=== PATIENT | female | born 1955 | race Caucasian/White ===

== ENCOUNTER 2017-07-29 15:05 | Emergency (ER) | payer MEDICARE ==
--- NOTE | 2017-07-29 16:07 | ERPHSYRPT ---
- History of Present Illness Time Seen by Provider: 07/29/17 16:04 Source: patient Exam Limitations: no limitations Physician History: fell today and hurt her upper mid back, painful deep breathing Timing/Duration: today Method of Injury: fall Quality: aching Back Pain Location: T-spine Severity of Pain-Max: moderate Severity of Pain-Current: moderate Modifying Factors: Improves With: nothing Associated Symptoms: denies symptoms Previous symptoms: no prior history Body Map: 1 - area of pain Allergies/Adverse Reactions: Penicillins Allergy (Verified 07/29/17 16:09) - Review of Systems Constitutional: No Symptoms Eyes: No Symptoms Ears, Nose, & Throat: No Symptoms Respiratory: No Symptoms Cardiac: No Symptoms Abdominal/Gastrointestinal: No Symptoms Musculoskeletal: Back Pain, Fall - Nursing Vital Signs Nursing Vital Signs: Initial Vital Signs Temperature 97.9 F 07/29/17 15:32 Pulse Rate 68 07/29/17 15:32 Respiratory Rate 20 07/29/17 15:32 Blood Pressure 197/88 07/29/17 15:32 O2 Sat by Pulse Oximetry 93 L 07/29/17 15:32 Pain Scale Pain Intensity 10 - Physical Exam General Appearance: no apparent distress, alert Eye Exam: PERRL/EOMI, eyes nml inspection Neck Exam: normal inspection, non-tender, supple, full range of motion, No meningismus, No midline tenderness Respiratory Exam: normal breath sounds, lungs clear, No respiratory distress Cardiovascular Exam: regular rate/rhythm, normal heart sounds Gastrointestinal Exam: soft, No tenderness, No mass Back Exam: normal inspection, decreased range of motion, muscle spasm, No vertebral tenderness, No rash, No point tenderness Extremity Exam: normal inspection, normal range of motion, No calf tenderness, No pedal edema Neurologic Exam: alert, oriented x 3, cooperative, progress developer II-XII nml as tested, normal mood/affect, nml station & gait, sensation nml, No motor deficits Skin Exam: normal color, warm, dry, No rash SpO2: 93 Oxygen Delivery: Room Air - Radiology Exams Other X-ray Interpretation: Reviewed by me Ordered Tests: Active Orders 24 hr Category Date Time Status CHEST 2 VIEWS (PA AND LAT) Stat Exams 07/29/17 15:39 Taken THORACIC SPINE (AP,LAT,SWIMM) Stat Exams 07/29/17 15:39 Taken - Progress Progress: improved, pain not gone completely Counseled pt/family regarding: diagnosis, need for follow-up, rad results - Departure Time of Disposition: 16:11 Departure Disposition: Home Clinical Impression: Fall (on) (from) other stairs and steps, initial encounter Back contusion Qualifiers: Encounter type: initial encounter Laterality: unspecified laterality Qualified Code(s): S20.229A - Contusion of unspecified back wall of thorax, initial encounter Condition: Stable Critical Care Time: No Referrals: TUAN HELTON MD [Emergency Provider] - Additional Instructions: SPRAINS/STRAINS/CONTUSIONS 1. Rest the affected area as much as possible for the next few days. 2. Apply ice to the affected area for 20-30 minutes at a time, several times a day. 3. If you receive an elastic wrap, wear it only while awake for comfort and support. Re-wrap the elastic wrap if it feels too tight or too loose. 4. If swelling is present, elevate the affected part above the level of the heart for at least 2 to 3 days. 5. Use splints, slings, or crutches as instructed. 6. Watch for severe swelling, coldness, numbness, and discoloration of the fingers and toes. See your family physician or return to the emergency department if any of these are noted. Prescriptions: Cyclobenzaprine HCl 10 mg [Flexeril 10 MG] 10 mg PO TID #30 tablet Naproxen 375 mg [Naprosyn 375 mg] 375 mg PO Q8H #30 tablet
[2017-07-29] MEDS ORDERED: TORAdol 30 mg Injection IM ONE (16:10)
[2017-07-29] MEDS ORDERED: Norflex 60 MG/2 ML IM ONE (16:10)
[2017-07-29] MEDS ORDERED: Norflex 60 MG/2 ML ONE (16:19)
[2017-07-29] MEDS ORDERED: TORAdol 30 mg Injection ONE (16:19)
[2017-07-29 16:29] VITALS: PULSE 64
[2017-07-29 16:52] VITALS: BP 185/92; O2SAT 94
--- NOTE | 2017-07-29 20:04 | XRAY ---
Indication: Pain with breathing following fall. Comparison: December 05, 2008. PA/lateral chest again hyperinflated and clear. Heart and mediastinal structures within normal limits with new right-sided dual lead pacemaker. Bony thorax intact again with osteopenia. Impression: Again nonacute hyperinflated chest. New right sided pacemaker without complications.
--- NOTE | 2017-07-29 20:06 | XRAY ---
Indication: Mid/upper back pain following fall. Comparison: None. Frontal/lateral thoracic spine demonstrates osteopenia, minimal multilevel degenerative changes, and mild dextroscoliosis centered mid lumbar level. No other bony, articular, or soft tissue abnormalities. Chest reported separately.
== END 2017-07-29 16:57 | disposition home or self-care (01) ==
LOC: ED 15:05
DX: S20.229A Contusion of unspecified back wall of thorax, initial encounter (principal); M54.6 Pain in thoracic spine; W10.9XXA Fall (on) (from) unspecified stairs and steps, initial encounter
CPT/HCPCS: 71020; 72072; 96372; 99284; J1885; J2360

== ENCOUNTER 2023-10-18 19:12 | Observation (INO) | payer MEDICARE ==
--- NOTE | 2023-10-18 19:54 | ERPHSYRPT ---
- History of Present Illness Time Seen by Provider: 10/18/23 19:14 Source: patient, family Exam Limitations: no limitations Patient Subjective Stated Complaint: pt alert and oriented, answers questions approp. speech slurred- pts normal after stroke. pt states she is short of breath but no more than her usual for the last year. pt c/o pain in james area and states she has been having trouble walking recently d/t pain from sores. Triage Nursing Assessment: pt alert and oriented, answers questions approp with slurred speech. pt short of brath with exertion, states is her normal. skin warm and dry. pt incont upon arrival, urine strong smeling and foul. james area red and excoriated with skin sloughing. Physician History: 67 years old female with history of stroke with unilateral weakness and contractures on Coumadin, COPD, tobacco abuse is brought in the ER with worsening generalized weakness fatigue and tiredness. Patient is having difficult time to get up and ambulate and has been urinating/sitting in the wet bed and has soreness in the perineum area which makes it really difficult to ambulate. Reports having shortness of breath at her baseline which is not any worse than usual. No chest pain, no abdominal pain nausea or vomiting. Denies any fever or chills. Daughter is really concerned as patient does not seem to be able to take care of herself. Allergies/Adverse Reactions: Penicillins Allergy (Unknown, Verified 10/18/23 22:49) Home Medications: Celecoxib 100 mg [celeBREX 100 MG] 100 mg PO DAILY 07/29/17 [History] Metoprolol Tartrate 25 mg [Lopressor 25MG Tab] 25 mg PO DAILY 07/29/17 [History] Pantoprazole Sodium [[id number]] 20 mg PO DAILY 07/29/17 [History] Ergocalciferol (Vitamin D2) [Vitamin D] 50,000 unit PO WEEKLY 02/24/21 [History] Lovastatin 10 mg PO DAILY 02/24/21 [History] Potassium Chloride [Klor-Con 10] 10 meq PO DAILY 02/24/21 [History] Hx Tetanus, Diphtheria Vaccination/Date Given: No Hx Influenza Vaccination/Date Given: No Hx Pneumococcal Vaccination/Date Given: Yes Immunizations Up to Date: No Travel Risk - International Travel Have you traveled outside of the country in past 3 weeks: No - Coronavirus Screening Are you exhibiting any of the following symptoms?: No Close contact with a COVID-19 positive Pt in past 14-21 Days: No - Vaccine Status Have you recieved a Covid-19 vaccination: No - Review of Systems Constitutional: Fatigue, Weakness Eyes: No Symptoms Ears, Nose, & Throat: No Symptoms Respiratory: Cough, Dyspnea, Dyspnea on Exertion (BYNUM), Wheezing Cardiac: No Symptoms Abdominal/Gastrointestinal: No Symptoms Genitourinary Symptoms: Incontinence Musculoskeletal: Arthralgias Skin: No Symptoms Neurological: Speech Changes (Chronic since stroke) Psychological: No Symptoms Immunological/Allergic: No Symptoms - Past Medical History Pertinent Past Medical History: Yes Neurological History: Stroke Cardiac History: Arrhythmia, High Cholesterol, Hypertension Musculoskeletal History: Arthritis GI Medical History: GERD Other Medical History: pacemaker - Past Surgical History Past Surgical History: Yes Cardiac: Pacemaker - Social History Smoking Status: Current every day smoker How long have you smoked: many years Exposure to second hand smoke: No Drug Use: none Patient Lives Alone: Yes - Nursing Vital Signs Nursing Vital Signs: Initial Vital Signs Temperature 97.8 F 10/18/23 19:28 Pulse Rate 75 10/18/23 19:28 Respiratory Rate 20 10/18/23 19:28 Blood Pressure 204/116 10/18/23 19:28 O2 Sat by Pulse Oximetry 96 10/18/23 19:28 Pain Scale Pain Intensity 10 - Physical Exam General Appearance: no apparent distress, alert Eye Exam: PERRL/EOMI Ears, Nose, Throat Exam: normal ENT inspection, TMs normal, pharynx normal Neck Exam: normal inspection, non-tender, supple, full range of motion Respiratory Exam: diminished breath sounds, wheezing, No chest tenderness Cardiovascular Exam: regular rate/rhythm, normal heart sounds Gastrointestinal/Abdomen Exam: soft, normal bowel sounds, No tenderness Back Exam: normal inspection, normal range of motion Extremity Exam: deformities (Contractures) Neurologic Exam: alert, oriented x 3, cooperative, motor deficits, No nml station & gait, No sensation nml Skin Exam: normal color SpO2 Interpretation: normal SpO2: 96 O2 Delivery: Room Air Ordered Tests: Medication Summary Generic Name Dose Route Start Last Admin Trade Name Freq PRN Reason Stop Dose Admin Albuterol Sulfate 2 puff 10/19/23 19:00 Albuterol Common Canister Inhaler IH 11/18/23 18:59 Q4H PRN PRN WHEEZES Albuterol/Ipratropium 3 ml 10/19/23 05:14 Ipratropium/Albuterol Sulfate 3 Ml Ampul.Neb 11/18/23 05:13 Q4HPRN PRN SHORTNESS OF BREATH/WHEEZING Celecoxib 100 mg 10/19/23 10:00 10/20/23 10:00 Celecoxib 100 Mg Capsule PO 11/18/23 09:59 100 mg DAILY JANAE Administration Ergocalciferol 50,000 unit 10/20/23 10:00 Ergocalciferol (Vitamin D2) 50,000 Unit Capsule PO 11/19/23 09:59 WEEKLY JANAE Ceftriaxone Sodium/Dextrose 1 g in 50 mls @ 100 mls/hr 10/19/23 10:00 10/20/23 10:00 Rocephin 1 Gm-D5w 50 Ml Bag IV 10/22/23 09:59 100 mls/hr Q24H10 JANAE Administration Metoprolol Tartrate 25 mg 10/19/23 10:00 10/20/23 10:02 Metoprolol Tartrate 25 Mg Tab PO 11/18/23 09:59 25 mg DAILY JANAE Administration Morphine Sulfate 2 mg 10/19/23 05:48 Morphine Sulfate 2 Mg/Ml Inj IV 10/24/23 05:47 Q4H PRN PRN PAIN Ondansetron HCl 4 mg 10/19/23 17:19 10/19/23 17:56 Ondansetron Hcl 4 Mg/2 Ml Vial IV 11/18/23 17:18 4 mg Q6H PRN PRN Administration NAUSEA/VOMITING Pantoprazole Sodium 20 mg 10/19/23 14:00 10/20/23 10:02 Pantoprazole 20 Mg Tab PO 11/18/23 13:59 20 mg DAILY JANAE Administration Simvastatin 5 mg 10/19/23 14:00 10/20/23 10:00 Simvastatin 10 Mg Tablet PO 11/18/23 13:59 5 mg DAILY JANAE Administration Sodium Bicarbonate 650 mg 10/19/23 10:00 10/20/23 10:02 Sodium Bicarbonate 650 Mg Tablet PO 11/18/23 09:59 650 mg BID JANAE Administration Warfarin Sodium 3 mg 10/19/23 18:00 10/20/23 17:09 Warfarin Sodium 3 Mg Tablet PO 11/18/23 17:59 3 mg COU JANAE Administration Discontinued Medications Generic Name Dose Route Start Last Admin Trade Name Freq PRN Reason Stop Dose Admin Device 1 10/21/23 17:30 Therapuetic Drug Level Monitor Each IJ 10/21/23 17:31 1XONLY ONE Enoxaparin Sodium 40 mg 10/19/23 10:00 Enoxaparin Sodium 40 Mg/0.4 Ml Syringe SQ 11/18/23 09:59 DAILY JANAE Sodium Chloride 1,000 mls @ 100 mls/hr 10/18/23 21:00 10/20/23 10:00 Sodium Chloride 0.9% 1000 Ml IV 11/17/23 20:59 100 mls/hr .Q10H JANAE Administration Clindamycin HCl/Dextrose 600 mg in 50 mls @ 100 mls/hr 10/18/23 20:48 10/18/23 21:55 Clindamycin-D5w 600 Mg/50 Ml IV 10/18/23 21:17 Infused STAT STA Infusion Meropenem 1 gm/ Sodium 100 mls @ 200 mls/hr 10/18/23 20:48 10/18/23 22:49 Chloride IV 10/18/23 21:17 200 mls/hr STAT ONE Administration Sodium Chloride Confirm 10/18/23 21:13 Sodium Chloride 100ml Mini-Bag Plus Administered 10/18/23 21:14 Dose 100 mls @ ud IV .STK-MED ONE Clindamycin HCl/Dextrose Confirm 10/18/23 21:13 Clindamycin-D5w 600 Mg/50 Ml Administered 10/18/23 21:14 Dose 600 mg in 50 mls @ ud IV .STK-MED ONE Vancomycin HCl 1 gm in 200 mls @ 125 mls/hr 10/19/23 05:15 10/19/23 05:37 Vancomycin 1 Gram/200 Ml Bag IV 11/18/23 05:14 125 mls/hr Q12H JANAE Administration Piperacillin Sod/Tazobactam 100 mls @ 200 mls/hr 10/19/23 06:00 10/19/23 06:36 Sod 3.375 gm/ Sodium Chloride IV 10/22/23 05:59 200 mls/hr Q6HT JANAE Administration Sodium Chloride Confirm 10/19/23 05:28 Sodium Chloride 100ml Mini-Bag Plus Administered 10/19/23 05:29 Dose 100 mls @ ud IV .STK-MED ONE Vancomycin HCl 1 gm in 200 mls @ 125 mls/hr 10/20/23 00:00 Vancomycin 1 Gram/200 Ml Bag IV 11/19/23 00:00 Q18H JANAE Clindamycin HCl/Dextrose 600 mg in 50 mls @ 100 mls/hr 10/19/23 14:00 10/19/23 14:50 Clindamycin-D5w 600 Mg/50 Ml IV 11/18/23 13:59 100 mls/hr Q8HT JANAE Administration Meropenem Confirm 10/18/23 21:12 Meropenem 1 Gm Vial Administered 10/18/23 21:13 Dose 1 gm IV .STK-MED ONE Morphine Sulfate 4 mg 10/18/23 21:44 10/18/23 22:23 Morphine Sulfate 4 Mg/Ml Injection IV 10/18/23 21:45 Not Given STAT ONE Morphine Sulfate Confirm 10/18/23 22:16 Morphine Sulfate 4 Mg/Ml Injection Administered 10/18/23 22:17 Dose 4 mg .ROUTE .STK-MED ONE Non-Formulary Medication 1 each 10/19/23 08:14 10/19/23 13:11 Pharmacy Dosing Request [facility] 10/19/23 08:15 1 each STAT ONE Administration Ondansetron HCl 4 mg 10/18/23 21:44 10/18/23 22:23 Ondansetron Hcl 4 Mg/2 Ml Vial IV 10/18/23 21:45 Not Given STAT ONE Ondansetron HCl Confirm 10/18/23 22:16 Ondansetron Hcl 4 Mg/2 Ml Vial Administered 10/18/23 22:17 Dose 4 mg .ROUTE .STK-MED ONE Phytonadione 5 mg 10/18/23 21:14 10/18/23 21:24 Phytonadione 10 Mg/Ml Amp PO 10/18/23 21:15 5 mg STAT ONE Administration Phytonadione Confirm 10/18/23 21:15 Phytonadione 10 Mg/Ml Amp Administered 10/18/23 21:16 Dose 10 mg .ROUTE .STK-MED ONE Piperacillin Sod/Tazobactam Sod Confirm 10/19/23 05:26 Piperacillin/Tazobactam Sodium 3.375 Gm Vial Administered 10/19/23 05:27 Dose 3.375 gm IV .STK-MED ONE Potassium Chloride 40 meq 10/20/23 07:32 10/20/23 08:24 Potassium Chloride Tab 10 Meq Tab PO 10/20/23 07:33 40 meq STAT ONE Administration Potassium Chloride 20 meq 10/20/23 12:00 10/20/23 12:05 Potassium Chloride Tab 10 Meq Tab PO 10/20/23 12:01 20 meq STAT ONE Administration Warfarin Sodium 1.5 mg 10/20/23 11:00 10/20/23 12:05 Warfarin Sodium 3 Mg Tablet PO 10/20/23 11:01 1.5 mg NOW ONE Administration Lab/Rad Data: Laboratory Result Diagrams 10/18/23 19:40 10/18/23 19:40 Laboratory Results 10/18/23 10/18/23 10/18/23 Range/Units 23:23 23:01 21:49 WBC (4.0-10.5) x10^3/uL RBC (4.1-5.4) x10^6/uL Hgb (12.0-16.0) g/dL Hct (35-47) % MCV (78-100) fL MCH (26-32) pg MCHC (32-36) g/dL RDW (11.5-14.0) % Plt Count (150-450) x10^3/uL Gran % (36.0-66.0) % Immature Gran % (Auto) (0.00-0.4) % Nucleat RBC Rel Count (0.00-0.1) % Eos # (Auto) (0-0.5) x10^3/uL Immature Gran # (Auto) (0.00-0.03) x10^3u/L Absolute Lymphs (auto) (1.0-4.6) x10^3/uL Absolute Monos (auto) (0.0-1.3) x10^3/uL Absolute Nucleated RBC (0.00-0.01) x10^3u/L Lymphocytes % (24.0-44.0) % Monocytes % (0.0-12.0) % Eosinophils % (0.00-5.0) % Basophils % (0.0-0.4) % Absolute Granulocytes (1.4-6.9) x10^3/uL Basophils # (0-0.4) x10^3/uL PT (9.4-12.5) SECONDS INR (0.8-3.0) Sodium (137-145) mmol/L Potassium (3.5-5.1) mmol/L Chloride (98-107) mmol/L Carbon Dioxide (22-30) mmol/L Anion Gap (5-15) MEQ/L BUN (7-17) mg/dL Creatinine (0.52-1.04) mg/dL Estimated GFR ML/MIN Glucose (74-106) mg/dL Lactic Acid 1.8 (0.4-2.0) Calcium (8.4-10.2) mg/dL Magnesium (1.6-2.3) mg/dL Total Bilirubin (0.2-1.3) mg/dL AST (14-36) U/L ALT (0-35) U/L Alkaline Phosphatase (38-126) U/L Troponin I 0.012 (0.000-0.034) ng/mL NT-Pro-B Natriuret Pep (<300) pg/mL Serum Total Protein (6.3-8.2) g/dL Albumin (3.5-5.0) g/dL Procalcitonin (0.030-0.080) ng/mL Urine Color Dark Yellow A (Yellow) Urine Appearance Cloudy A (Clear) Urine pH 5.5 (4.6-8.0) Ur Specific [place] 1.025 (1.005-1.030) Urine Protein 100 A (Negative) Urine Glucose (UA) Negative (Negative) mg/dL Urine Ketones 80 A (Negative) Urine Blood Trace (Negative) Urine Nitrite Positive A (Negative) Urine Bilirubin Small A (Negative) Urine Urobilinogen 1.0 A (0.2) mg/dL Ur Leukocyte Esterase Moderate A (Negative) U Hyaline Cast (Auto) 11-20 (0-2) /LPF Urine Microscopic RBC 0-2 (0-5) /HPF Urine Microscopic WBC >100 A (0-5) /HPF Ur Epithelial Cells Rare (None Seen) /HPF Urine Bacteria Many A (None Seen) /HPF Urine Culture Reflexed YES (NO) Influenza Type A Ag (NEGATIVE) Influenza Type B Ag (NEGATIVE) RSV (PCR) (NEGATIVE) SARS-CoV-2 (PCR) (NEGATIVE) 10/18/23 10/18/23 10/18/23 Range/Units 20:10 19:47 19:40 WBC (4.0-10.5) x10^3/uL RBC (4.1-5.4) x10^6/uL Hgb (12.0-16.0) g/dL Hct (35-47) % MCV (78-100) fL MCH (26-32) pg MCHC (32-36) g/dL RDW (11.5-14.0) % Plt Count (150-450) x10^3/uL Gran % (36.0-66.0) % Immature Gran % (Auto) (0.00-0.4) % Nucleat RBC Rel Count (0.00-0.1) % Eos # (Auto) (0-0.5) x10^3/uL Immature Gran # (Auto) (0.00-0.03) x10^3u/L Absolute Lymphs (auto) (1.0-4.6) x10^3/uL Absolute Monos (auto) (0.0-1.3) x10^3/uL Absolute Nucleated RBC (0.00-0.01) x10^3u/L Lymphocytes % (24.0-44.0) % Monocytes % (0.0-12.0) % Eosinophils % (0.00-5.0) % Basophils % (0.0-0.4) % Absolute Granulocytes (1.4-6.9) x10^3/uL Basophils # (0-0.4) x10^3/uL PT 58.1 H (9.4-12.5) SECONDS INR 5.99 H* (0.8-3.0) Sodium (137-145) mmol/L Potassium (3.5-5.1) mmol/L Chloride (98-107) mmol/L Carbon Dioxide (22-30) mmol/L Anion Gap (5-15) MEQ/L BUN (7-17) mg/dL Creatinine (0.52-1.04) mg/dL Estimated GFR ML/MIN Glucose (74-106) mg/dL Lactic Acid 2.4 H (0.4-2.0) Calcium (8.4-10.2) mg/dL Magnesium (1.6-2.3) mg/dL Total Bilirubin (0.2-1.3) mg/dL AST (14-36) U/L ALT (0-35) U/L Alkaline Phosphatase (38-126) U/L Troponin I (0.000-0.034) ng/mL NT-Pro-B Natriuret Pep (<300) pg/mL Serum Total Protein (6.3-8.2) g/dL Albumin (3.5-5.0) g/dL Procalcitonin (0.030-0.080) ng/mL Urine Color (Yellow) Urine Appearance (Clear) Urine pH (4.6-8.0) Ur Specific [place] (1.005-1.030) Urine Protein (Negative) Urine Glucose (UA) (Negative) mg/dL Urine Ketones (Negative) Urine Blood (Negative) Urine Nitrite (Negative) Urine Bilirubin (Negative) Urine Urobilinogen (0.2) mg/dL Ur Leukocyte Esterase (Negative) U Hyaline Cast (Auto) (0-2) /LPF Urine Microscopic RBC (0-5) /HPF Urine Microscopic WBC (0-5) /HPF Ur Epithelial Cells (None Seen) /HPF Urine Bacteria (None Seen) /HPF Urine Culture Reflexed (NO) Influenza Type A Ag NEGATIVE (NEGATIVE) Influenza Type B Ag NEGATIVE (NEGATIVE) RSV (PCR) NEGATIVE (NEGATIVE) SARS-CoV-2 (PCR) POSITIVE A (NEGATIVE) 10/18/23 10/18/23 10/18/23 Range/Units 19:40 19:40 19:40 WBC 9.0 (4.0-10.5) x10^3/uL RBC 6.43 H (4.1-5.4) x10^6/uL Hgb 14.8 (12.0-16.0) g/dL Hct 47.4 H (35-47) % MCV 73.7 L (78-100) fL MCH 23.0 L (26-32) pg MCHC 31.2 L (32-36) g/dL RDW 19.5 H (11.5-14.0) % Plt Count 114 L (150-450) x10^3/uL Gran % 75.8 H (36.0-66.0) % Immature Gran % (Auto) 0.4 (0.00-0.4) % Nucleat RBC Rel Count 0.0 (0.00-0.1) % Eos # (Auto) 0.02 (0-0.5) x10^3/uL Immature Gran # (Auto) 0.04 H (0.00-0.03) x10^3u/L Absolute Lymphs (auto) 1.50 (1.0-4.6) x10^3/uL Absolute Monos (auto) 0.62 (0.0-1.3) x10^3/uL Absolute Nucleated RBC 0.00 (0.00-0.01) x10^3u/L Lymphocytes % 16.6 L (24.0-44.0) % Monocytes % 6.9 (0.0-12.0) % Eosinophils % 0.2 (0.00-5.0) % Basophils % 0.1 (0.0-0.4) % Absolute Granulocytes 6.84 (1.4-6.9) x10^3/uL Basophils # 0.01 (0-0.4) x10^3/uL PT (9.4-12.5) SECONDS INR (0.8-3.0) Sodium 132 L (137-145) mmol/L Potassium 3.9 (3.5-5.1) mmol/L Chloride 98 (98-107) mmol/L Carbon Dioxide 18 L (22-30) mmol/L Anion Gap 20.1 H (5-15) MEQ/L BUN 23 H (7-17) mg/dL Creatinine 0.81 (0.52-1.04) mg/dL Estimated GFR 78.5 ML/MIN Glucose 88 (74-106) mg/dL Lactic Acid (0.4-2.0) Calcium 9.6 (8.4-10.2) mg/dL Magnesium 2.0 (1.6-2.3) mg/dL Total Bilirubin 1.60 H (0.2-1.3) mg/dL AST 30 (14-36) U/L ALT 14 (0-35) U/L Alkaline Phosphatase 141 H (38-126) U/L Troponin I < 0.012 (0.000-0.034) ng/mL NT-Pro-B Natriuret Pep 3340 (<300) pg/mL Serum Total Protein 8.5 H (6.3-8.2) g/dL Albumin 4.1 (3.5-5.0) g/dL Procalcitonin 0.094 H (0.030-0.080) ng/mL Urine Color (Yellow) Urine Appearance (Clear) Urine pH (4.6-8.0) Ur Specific [place] (1.005-1.030) Urine Protein (Negative) Urine Glucose (UA) (Negative) mg/dL Urine Ketones (Negative) Urine Blood (Negative) Urine Nitrite (Negative) Urine Bilirubin (Negative) Urine Urobilinogen (0.2) mg/dL Ur Leukocyte Esterase (Negative) U Hyaline Cast (Auto) (0-2) /LPF Urine Microscopic RBC (0-5) /HPF Urine Microscopic WBC (0-5) /HPF Ur Epithelial Cells (None Seen) /HPF Urine Bacteria (None Seen) /HPF Urine Culture Reflexed (NO) Influenza Type A Ag (NEGATIVE) Influenza Type B Ag (NEGATIVE) RSV (PCR) (NEGATIVE) SARS-CoV-2 (PCR) (NEGATIVE) - Progress Progress: improved, re-examined Progress Note: 10/18/23 21:41 67-year-old is evaluated for generalized weakness with cellulitis of perineum area along with urinary incontinence which is going on for quite some time. Patient has chronic shortness of breath which is at around her baseline. Questionable infiltrative process on the x-rays reviewed by me and later on confirmed by radiology. Has normal white count, has a INR of 5.9 and she is given a dose of oral vitamin K. She has normal white count with a lactate of 2. 4 and procalcitonin 1.09. She is given broad-spectrum antibiotics meropenem and clindamycin. Patient also has a positive COVID-19 she is on room air. Her pressure was elevated focal weakness pain or abdominal pain. Discussed with Dr. Rojas hospitalist on-call, reviewed history, workup, recommended obtaining CT chest without contrast and patient is accepted for admission. Counseled pt/family regarding: lab results, diagnosis, rad results Medical Desision Making - Independent Historian Additional History obtained from: Child - Discussion of managment Care discussed with:: hospitalist (Dr. Rojas) Reviewed:: Test results Agreed on:: Treatment plan Will see patient: in hospital - Diagnostic Testing Diagnostic test were ordered, analyzed, and reviewed by me: Yes Radiological Interpretation: Interpreted by me, Reviewed by me, Teleradiologist Report - Risk of complications The pt has a high risk of morbidity or mortality based on: Decision regarding hospitilization or escalation of hosp level of care - Departure Departure Disposition: Observation Clinical Impression: Generalized weakness, Cellulitis of perineum, Pneumonia Condition: Stable Critical Care Time: No
[2023-10-18 20:16] LABS: Absolute Neutrophil Ct (ANC) 6.84 x10^3/uL (1.4-6.9); BASOPHIL % 0.1 % (0.0-0.4); Basophil (Absolute #) 0.01 x10^3/uL (0-0.4); Eosinophil % 0.2 % (0.00-5.0); Eosinophil (Absolute #) 0.02 x10^3/uL (0-0.5); Hematocrit 47.4 % (35-47); Hemoglobin 14.8 g/dL (12.0-16.0); IMMATURE GRAN # 0.04 x10^3u/L (0.00-0.03); IMMATURE GRAN % 0.4 % (0.00-0.4); Lymphocytes % 16.6 % (24.0-44.0); Mean Cell Volume 73.7 fL (78-100); Mean Corpuscular Hgb Concent. 31.2 g/dL (32-36); Monocyte (Absolute #) 0.62 x10^3/uL (0.0-1.3); Monocytes % 6.9 % (0.0-12.0); Neutrophil % 75.8 % (36.0-66.0); Platelet Count 114 x10^3/uL (150-450); Red Blood Count 6.43 x10^6/uL (4.1-5.4); Red Cell Distribution Width 19.5 % (11.5-14.0)
[2023-10-18 20:35] LABS: ALBUMIN 4.1 g/dL (3.5-5.0); ANION GAP 20.1 MEQ/L (5-15); BILIRUBIN,TOTAL 1.6 mg/dL (0.2-1.3); Calcium 9.6 mg/dL (8.4-10.2); Creatinine 1 0.81 mg/dL (0.52-1.04); EST GLOMERULAR FILTRATION RATE 78.5 ML/MIN; Potassium 3.9 mmol/L (3.5-5.1); Total Protein 8.5 g/dL (6.3-8.2)
[2023-10-18 20:41] LABS: PROTIME 58.1 SECONDS (9.4-12.5)
[2023-10-18] MEDS ORDERED: CLINDAMYCIN-D5W 600 MG/50 ML*** 600 MG/50 ML BAG IV STA (20:48)
[2023-10-18] MEDS ORDERED: Merrem 1 GM in Sodium Chloride 100ML MINI-BAG PLUS 100 ML IV ONE (20:48)
[2023-10-18 20:51] LABS: NT PRO BNPII 3340 pg/mL (<300); PROCALCITONIN 0.094 ng/mL (0.030-0.080); TROPONIN < 0.012 ng/mL (0.000-0.034)
[2023-10-18 20:54] LABS: INR 5.99 (0.8-3.0)
[2023-10-18 21:01] LABS: INFLUENZA A NEGATIVE (NEGATIVE); INFLUENZA B NEGATIVE (NEGATIVE); RESPIRATORY SYNCTIAL VIRUS NEGATIVE (NEGATIVE)
[2023-10-18 21:06] LABS: SARS-CoV-2 Xpert Express POSITIVE (NEGATIVE)
[2023-10-18] MEDS ORDERED: Merrem IV ONE (21:12)
[2023-10-18] MEDS ORDERED: CLINDAMYCIN-D5W 600 MG/50 ML*** 600 MG/50 ML BAG IV ONE (21:13)
[2023-10-18] MEDS ORDERED: Sodium Chloride 100ML MINI-BAG PLUS 100 ML IV ONE (21:13)
[2023-10-18] MEDS ORDERED: Vitamin K 10 MG/ML PO ONE (21:14)
[2023-10-18] MEDS ORDERED: Vitamin K 10 MG/ML ONE (21:15)
[2023-10-18] MEDS: Sodium Chloride 0.9% 1000 ML 1,000 ML IV SCH (21:22)
[2023-10-18] MEDS ORDERED: MORPHINE SULFATE 4 MG INJ IV ONE (21:44)
[2023-10-18] MEDS ORDERED: Zofran 4 MG/2 ML VIAL IV ONE (21:44)
[2023-10-18] MEDS ORDERED: Zofran 4 MG/2 ML VIAL ONE (22:16)
[2023-10-18] MEDS ORDERED: MORPHINE SULFATE 4 MG INJ ONE (22:16)
[2023-10-18 23:31] LABS: Appearance Cloudy (Clear); Bacteria Many /HPF (None Seen); Bilirubin Small (Negative); Blood Trace (Negative); Epithelial Cells Rare /HPF (None Seen); Glucose, Urine Negative (Negative); Ketones 80 (Negative); Leukocyte Esterase Moderate (Negative); Nitrite Positive (Negative); Ph 5.5 (4.6-8.0); Protein,Urine Dip 100 (Negative); RBC 0-2 /HPF (0-5); Specific Gravity 1.025 (1.005-1.030); WBC >100 /HPF (0-5)
[2023-10-18 23:43] LABS: ADD URINE CULTURE? YES (NO)
--- NOTE | 2023-10-18 23:50 | XRAY ---
CLINICAL HISTORY:weakness generalized , copd COMPARISON:01/27/2019 CR reviewed. TECHNIQUE:Contiguous 3.[address] images of the chest were acquired without contrast. Coronal and sagittal reconstructions were obtained. FINDINGS: Extensive centrilobular emphysematous changes were noted in bilateral upper lobes with mild changes in lower lobes with few areas of subpleural clustered cysts. Subpleural reticulations are seen in fibrosis noted in both lungs, more so in the posterior aspect of basal segments. No definite consolidative lesions. No free or encysted pleural effusion. Heart size is normal, and there is no pericardial effusion. The pacemaker needs to be noted in situ. The thoracic aorta shows atherosclerotic changes with heavily calcified plaques. Calcified intraluminal thrombosis noted in the lower descending thoracic aorta causing moderate to severe luminal narrowing. There is dilatation of the main pulmonary trunk, measuring 42 mm in maximum caliber with mild dilatation of its branches. Multiple prominent and a few mildly enlarged lymph nodes are seen. One of the largest at the supracarinal region measures 1.6 x 0.8cm. No pathologically enlarged mediastinal, hilar or axillary lymph node identified. The thoracic spine shows degenerative changes. Partial wedge collapse of T8 vertebral body noted with mild superior endplate collapse of T5 vertebral body. There is no definite mass lesion in the chest wall. The scanned upper abdomen show 18 mm calculus in gallbladder. Heavy vascular calcification of abdominal arteries. IMPRESSION: Chronic obstructive pulmonary disease. Dilatation of the main pulmonary trunk and its branches, the possibility of pulmonary hypertension needs to be excluded. 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 Consider CTA if warranted clinically. Electronically Signed by: Analy Child MD. (10/18/2023 23:45:33 EST)
[2023-10-19 04:41] LABS: Hemoglobin 12.2 g/dL (12.0-16.0); Mean Cell Volume 72.9 fL (78-100); Mean Corpuscular Hemoglobin 23.4 pg (26-32); Mean Corpuscular Hgb Concent. 32.1 g/dL (32-36); Mean Platelet Volume 11.1 fL (7.5-11.0); Platelet Count 103 x10^3/uL (150-450); Red Blood Count 5.21 x10^6/uL (4.1-5.4); Red Cell Distribution Width 18.6 % (11.5-14.0); White Blood Count 8.4 x10^3/uL (4.0-10.5)
[2023-10-19 04:44] LABS: ANION GAP 12.1 MEQ/L (5-15); Calcium 8.2 mg/dL (8.4-10.2); Creatinine 1 0.59 mg/dL (0.52-1.04); EST GLOMERULAR FILTRATION RATE 97.5 ML/MIN; PREALBUMIN 4.22 mg/dL (17.6-36.0); Potassium 3.6 mmol/L (3.5-5.1)
[2023-10-19] MEDS ORDERED: DUONEB 0.5-3 MG/3 ml Neb IH PRN (05:14)
[2023-10-19] MEDS ORDERED: VANCOMYCIN 1 GRAM/200 ML BAG 1 GM/200 ML PIGGYBACK IV SCH (05:15)
[2023-10-19] MEDS ORDERED: PIPERACILLIN/TAZOBACTAM IV ONE (05:26)
[2023-10-19] MEDS ORDERED: Sodium Chloride 100ML MINI-BAG PLUS 100 ML IV ONE (05:28)
[2023-10-19] MEDS: Sodium Chloride 0.9% 1000 ML 1,000 ML IV SCH ×3 (05:37→23:23)
[2023-10-19] MEDS ORDERED: MORPHINE SULFATE 2 MG INJ IV PRN (05:48)
--- NOTE | 2023-10-19 05:53 | PCM.HP ---
History of Present Illness - Chief Complaint Chief Complaint: Covid-19 Date: 10/19/23 History of Present Illness: Ms. 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 She admits to one week of pain, and upon arrival to [place], exam revealed infection of the perineal area in the setting of laboratory data that revealed elevated INR, thrombocytopenia, hyponatremia, and elevated lactate. Imaging was unremarkable. On my examination, she denies fevers, chills, nausea, vomiting, diarrhea, syncope, presyncope, visual changes, orthopnea, PND, odynophagia, dysphagia, chest pain, shortness of breath, belly pain, dysuria, hematuria, melena, hematochezia, or neurological changes. All other systems were reviewed and were negative. - Review of Systems Constitutional: No Fever, No Chills Eyes: No Symptoms Ears, Nose, & Throat: No Symptoms Respiratory: No Cough, No Short Of Breath Cardiac: No Chest Pain, No Edema, No Syncope Abdominal/Gastrointestinal: No Abdominal Pain, No Nausea, No Vomiting, No Diarrhea Genitourinary Symptoms: No Dysuria Musculoskeletal: No Back Pain, No Neck Pain Skin: No Rash Neurological: No Dizziness, No Focal Weakness, No Sensory Changes Psychological: No Symptoms Endocrine: No Symptoms Hematologic/Lymphatic: No Symptoms Immunological/Allergic: No Symptoms Medications & Allergies Home Medications: Home Medication List Celecoxib 100 mg [celeBREX 100 MG] 100 mg PO DAILY 07/29/17 [History Confirmed 10/19/23] Metoprolol Tartrate 25 mg [Lopressor 25MG Tab] 25 mg PO DAILY 07/29/17 [History Confirmed 10/19/23] Pantoprazole Sodium [[id number]] 20 mg PO DAILY 07/29/17 [History Confirmed 07/29/17] Warfarin Sodium 5 mg PO DAILY #15 tablet 01/06/21 [Rx] Warfarin Sodium 3 mg PO DAILY 90 Days #90 tablet 01/27/21 [Rx Confirmed 10/19/23] Ergocalciferol (Vitamin D2) [Vitamin D] 50,000 unit PO FR 02/24/21 [History Confirmed 02/24/21] Lovastatin 10 mg PO DAILY 02/24/21 [History Confirmed 02/24/21] Potassium Chloride [Klor-Con 10] 10 meq PO DAILY 02/24/21 [History Confirmed 02/24/21] Allergies/Adverse Reactions: Allergies Allergy/AdvReac Type Severity Reaction Status Date / Time Penicillins Allergy Unknown Verified 10/18/23 22:49 - Past Medical History Past Medical History: Yes Neurological History: Stroke ENT History: No Pertinent History Cardiac History: Arrhythmia, High Cholesterol, Hypertension Respiratory History: No Pertinent History Endocrine Medical History: No Pertinent History Musculoskelatal History: Arthritis GI Medical History: GERD History: No Pertinent History Pyscho-Social History: No Pertinent History Reproductive Disorders: No Pertinent History Comment: pacemaker - Female History Are you now?: No - Past Surgical History Past Surgical History: Yes Neuro Surgical History: No Pertinent History Cardiac History: Pacemaker Respiratory Surgery: No Pertinent History GI Surgical History: No Pertinent History Genitourinary Surgical Hx: No Pertinent History Musculskeletal Surgical Hx: No Pertinent History Female Surgical History: No Pertinent History - Social History Smoking Status: Current every day smoker How long have you smoked: many years Exposure to second hand smoke: No Alcohol: None Drug Use: none - Physical Exam Vital Signs: Vital Signs - 24 hr Temp Pulse Resp BP BP Pulse Ox 10/19/23 04:00 24 10/19/23 01:42 24 10/19/23 01:34 74 24 98 10/19/23 00:55 97.5 F 78 26 H 158/83 97 10/19/23 00:30 66 15 142/89 97 10/19/23 00:00 63 26 H 148/82 97 10/18/23 23:30 68 30 H 139/78 97 10/18/23 22:30 65 20 170/108 97 10/18/23 22:00 66 29 H 183/80 97 10/18/23 21:47 96 10/18/23 21:32 65 31 H 185/112 10/18/23 21:00 67 22 192/96 96 10/18/23 20:30 70 26 H 200/133 98 10/18/23 19:30 66 29 H 197/103 97 10/18/23 19:28 97.8 F 75 20 204/116 96 General Appearance: no apparent distress, alert Neurologic Exam: alert, oriented x 3, cooperative, normal mood/affect, nml cerebellar function, nml station & gait, sensation nml, No motor deficits Eye Exam: PERRL/EOMI, eyes nml inspection Ears, Nose, Throat Exam: normal ENT inspection, TMs normal, pharynx normal, moist mucous membranes Neck Exam: normal inspection, non-tender, supple, full range of motion Respiratory Exam: normal breath sounds, lungs clear, No respiratory distress Cardiovascular Exam: regular rate/rhythm, normal heart sounds, normal peripheral pulses Gastrointestinal/Abdomen Exam: soft, normal bowel sounds, No tenderness, No mass Rectal Exam: other (Perineal inflammation) Back Exam: normal inspection, normal range of motion, No CVA tenderness, No vertebral tenderness Extremity Exam: normal inspection, normal range of motion, pelvis stable Skin Exam: normal color, warm, dry, No rash Lymphatic Exam: No adenopathy Results - Labs Lab/Micro Results: Lab Results-Last 24 Hours 10/18/23 10/18/23 10/18/23 Range/Units 19:40 19:40 19:40 WBC 9.0 (4.0-10.5) x10^3/uL RBC 6.43 H (4.1-5.4) x10^6/uL Hgb 14.8 (12.0-16.0) g/dL Hct 47.4 H (35-47) % MCV 73.7 L (78-100) fL MCH 23.0 L (26-32) pg MCHC 31.2 L (32-36) g/dL RDW 19.5 H (11.5-14.0) % Plt Count 114 L (150-450) x10^3/uL MPV (7.5-11.0) fL Gran % 75.8 H (36.0-66.0) % Immature Gran % (Auto) 0.4 (0.00-0.4) % Nucleat RBC Rel Count 0.0 (0.00-0.1) % Eos # (Auto) 0.02 (0-0.5) x10^3/uL Immature Gran # (Auto) 0.04 H (0.00-0.03) x10^3u/L Absolute Lymphs (auto) 1.50 (1.0-4.6) x10^3/uL Absolute Monos (auto) 0.62 (0.0-1.3) x10^3/uL Absolute Nucleated RBC 0.00 (0.00-0.01) x10^3u/L Lymphocytes % 16.6 L (24.0-44.0) % Monocytes % 6.9 (0.0-12.0) % Eosinophils % 0.2 (0.00-5.0) % Basophils % 0.1 (0.0-0.4) % Absolute Granulocytes 6.84 (1.4-6.9) x10^3/uL Basophils # 0.01 (0-0.4) x10^3/uL PT (9.4-12.5) SECONDS INR (0.8-3.0) Sodium 132 L (137-145) mmol/L Potassium 3.9 (3.5-5.1) mmol/L Chloride 98 (98-107) mmol/L Carbon Dioxide 18 L (22-30) mmol/L Anion Gap 20.1 H (5-15) MEQ/L BUN 23 H (7-17) mg/dL Creatinine 0.81 (0.52-1.04) mg/dL Estimated GFR 78.5 ML/MIN Glucose 88 (74-106) mg/dL Lactic Acid (0.4-2.0) Calcium 9.6 (8.4-10.2) mg/dL Magnesium 2.0 (1.6-2.3) mg/dL Total Bilirubin 1.60 H (0.2-1.3) mg/dL AST 30 (14-36) U/L ALT 14 (0-35) U/L Alkaline Phosphatase 141 H (38-126) U/L Troponin I < 0.012 (0.000-0.034) ng/mL NT-Pro-B Natriuret Pep 3340 (<300) pg/mL Serum Total Protein 8.5 H (6.3-8.2) g/dL Albumin 4.1 (3.5-5.0) g/dL Prealbumin (17.6-36.0) mg/dL Procalcitonin 0.094 H (0.030-0.080) ng/mL Urine Color (Yellow) Urine Appearance (Clear) Urine pH (4.6-8.0) Ur Specific [place] (1.005-1.030) Urine Protein (Negative) Urine Glucose (UA) (Negative) mg/dL Urine Ketones (Negative) Urine Blood (Negative) Urine Nitrite (Negative) Urine Bilirubin (Negative) Urine Urobilinogen (0.2) mg/dL Ur Leukocyte Esterase (Negative) U Hyaline Cast (Auto) (0-2) /LPF Urine Microscopic RBC (0-5) /HPF Urine Microscopic WBC (0-5) /HPF Ur Epithelial Cells (None Seen) /HPF Urine Bacteria (None Seen) /HPF Urine Culture Reflexed (NO) Influenza Type A Ag (NEGATIVE) Influenza Type B Ag (NEGATIVE) RSV (PCR) (NEGATIVE) SARS-CoV-2 (PCR) (NEGATIVE) 10/18/23 10/18/23 10/18/23 Range/Units 19:40 19:47 20:10 WBC (4.0-10.5) x10^3/uL RBC (4.1-5.4) x10^6/uL Hgb (12.0-16.0) g/dL Hct (35-47) % MCV (78-100) fL MCH (26-32) pg MCHC (32-36) g/dL RDW (11.5-14.0) % Plt Count (150-450) x10^3/uL MPV (7.5-11.0) fL Gran % (36.0-66.0) % Immature Gran % (Auto) (0.00-0.4) % Nucleat RBC Rel Count (0.00-0.1) % Eos # (Auto) (0-0.5) x10^3/uL Immature Gran # (Auto) (0.00-0.03) x10^3u/L Absolute Lymphs (auto) (1.0-4.6) x10^3/uL Absolute Monos (auto) (0.0-1.3) x10^3/uL Absolute Nucleated RBC (0.00-0.01) x10^3u/L Lymphocytes % (24.0-44.0) % Monocytes % (0.0-12.0) % Eosinophils % (0.00-5.0) % Basophils % (0.0-0.4) % Absolute Granulocytes (1.4-6.9) x10^3/uL Basophils # (0-0.4) x10^3/uL PT 58.1 H (9.4-12.5) SECONDS INR 5.99 H* (0.8-3.0) Sodium (137-145) mmol/L Potassium (3.5-5.1) mmol/L Chloride (98-107) mmol/L Carbon Dioxide (22-30) mmol/L Anion Gap (5-15) MEQ/L BUN (7-17) mg/dL Creatinine (0.52-1.04) mg/dL Estimated GFR ML/MIN Glucose (74-106) mg/dL Lactic Acid 2.4 H (0.4-2.0) Calcium (8.4-10.2) mg/dL Magnesium (1.6-2.3) mg/dL Total Bilirubin (0.2-1.3) mg/dL AST (14-36) U/L ALT (0-35) U/L Alkaline Phosphatase (38-126) U/L Troponin I (0.000-0.034) ng/mL NT-Pro-B Natriuret Pep (<300) pg/mL Serum Total Protein (6.3-8.2) g/dL Albumin (3.5-5.0) g/dL Prealbumin (17.6-36.0) mg/dL Procalcitonin (0.030-0.080) ng/mL Urine Color (Yellow) Urine Appearance (Clear) Urine pH (4.6-8.0) Ur Specific [place] (1.005-1.030) Urine Protein (Negative) Urine Glucose (UA) (Negative) mg/dL Urine Ketones (Negative) Urine Blood (Negative) Urine Nitrite (Negative) Urine Bilirubin (Negative) Urine Urobilinogen (0.2) mg/dL Ur Leukocyte Esterase (Negative) U Hyaline Cast (Auto) (0-2) /LPF Urine Microscopic RBC (0-5) /HPF Urine Microscopic WBC (0-5) /HPF Ur Epithelial Cells (None Seen) /HPF Urine Bacteria (None Seen) /HPF Urine Culture Reflexed (NO) Influenza Type A Ag NEGATIVE (NEGATIVE) Influenza Type B Ag NEGATIVE (NEGATIVE) RSV (PCR) NEGATIVE (NEGATIVE) SARS-CoV-2 (PCR) POSITIVE A (NEGATIVE) 10/18/23 10/18/23 10/18/23 Range/Units 21:49 23:01 23:23 WBC (4.0-10.5) x10^3/uL RBC (4.1-5.4) x10^6/uL Hgb (12.0-16.0) g/dL Hct (35-47) % MCV (78-100) fL MCH (26-32) pg MCHC (32-36) g/dL RDW (11.5-14.0) % Plt Count (150-450) x10^3/uL MPV (7.5-11.0) fL Gran % (36.0-66.0) % Immature Gran % (Auto) (0.00-0.4) % Nucleat RBC Rel Count (0.00-0.1) % Eos # (Auto) (0-0.5) x10^3/uL Immature Gran # (Auto) (0.00-0.03) x10^3u/L Absolute Lymphs (auto) (1.0-4.6) x10^3/uL Absolute Monos (auto) (0.0-1.3) x10^3/uL Absolute Nucleated RBC (0.00-0.01) x10^3u/L Lymphocytes % (24.0-44.0) % Monocytes % (0.0-12.0) % Eosinophils % (0.00-5.0) % Basophils % (0.0-0.4) % Absolute Granulocytes (1.4-6.9) x10^3/uL Basophils # (0-0.4) x10^3/uL PT (9.4-12.5) SECONDS INR (0.8-3.0) Sodium (137-145) mmol/L Potassium (3.5-5.1) mmol/L Chloride (98-107) mmol/L Carbon Dioxide (22-30) mmol/L Anion Gap (5-15) MEQ/L BUN (7-17) mg/dL Creatinine (0.52-1.04) mg/dL Estimated GFR ML/MIN Glucose (74-106) mg/dL Lactic Acid 1.8 (0.4-2.0) Calcium (8.4-10.2) mg/dL Magnesium (1.6-2.3) mg/dL Total Bilirubin (0.2-1.3) mg/dL AST (14-36) U/L ALT (0-35) U/L Alkaline Phosphatase (38-126) U/L Troponin I 0.012 (0.000-0.034) ng/mL NT-Pro-B Natriuret Pep (<300) pg/mL Serum Total Protein (6.3-8.2) g/dL Albumin (3.5-5.0) g/dL Prealbumin (17.6-36.0) mg/dL Procalcitonin (0.030-0.080) ng/mL Urine Color Dark Yellow A (Yellow) Urine Appearance Cloudy A (Clear) Urine pH 5.5 (4.6-8.0) Ur Specific [place] 1.025 (1.005-1.030) Urine Protein 100 A (Negative) Urine Glucose (UA) Negative (Negative) mg/dL Urine Ketones 80 A (Negative) Urine Blood Trace (Negative) Urine Nitrite Positive A (Negative) Urine Bilirubin Small A (Negative) Urine Urobilinogen 1.0 A (0.2) mg/dL Ur Leukocyte Esterase Moderate A (Negative) U Hyaline Cast (Auto) 11-20 (0-2) /LPF Urine Microscopic RBC 0-2 (0-5) /HPF Urine Microscopic WBC >100 A (0-5) /HPF Ur Epithelial Cells Rare (None Seen) /HPF Urine Bacteria Many A (None Seen) /HPF Urine Culture Reflexed YES (NO) Influenza Type A Ag (NEGATIVE) Influenza Type B Ag (NEGATIVE) RSV (PCR) (NEGATIVE) SARS-CoV-2 (PCR) (NEGATIVE) 10/19/23 10/19/23 10/19/23 Range/Units 03:30 03:30 03:30 WBC 8.4 (4.0-10.5) x10^3/uL RBC 5.21 (4.1-5.4) x10^6/uL Hgb 12.2 (12.0-16.0) g/dL Hct 38.0 (35-47) % MCV 72.9 L (78-100) fL MCH 23.4 L (26-32) pg MCHC 32.1 (32-36) g/dL RDW 18.6 H (11.5-14.0) % Plt Count 103 L (150-450) x10^3/uL MPV 11.1 H (7.5-11.0) fL Gran % (36.0-66.0) % Immature Gran % (Auto) (0.00-0.4) % Nucleat RBC Rel Count (0.00-0.1) % Eos # (Auto) (0-0.5) x10^3/uL Immature Gran # (Auto) (0.00-0.03) x10^3u/L Absolute Lymphs (auto) (1.0-4.6) x10^3/uL Absolute Monos (auto) (0.0-1.3) x10^3/uL Absolute Nucleated RBC (0.00-0.01) x10^3u/L Lymphocytes % (24.0-44.0) % Monocytes % (0.0-12.0) % Eosinophils % (0.00-5.0) % Basophils % (0.0-0.4) % Absolute Granulocytes (1.4-6.9) x10^3/uL Basophils # (0-0.4) x10^3/uL PT (9.4-12.5) SECONDS INR (0.8-3.0) Sodium 129 L (137-145) mmol/L Potassium 3.6 (3.5-5.1) mmol/L Chloride 103 (98-107) mmol/L Carbon Dioxide 17 L (22-30) mmol/L Anion Gap 12.1 (5-15) MEQ/L BUN 21 H (7-17) mg/dL Creatinine 0.59 (0.52-1.04) mg/dL Estimated GFR 97.5 ML/MIN Glucose 74 (74-106) mg/dL Lactic Acid (0.4-2.0) Calcium 8.2 L (8.4-10.2) mg/dL Magnesium (1.6-2.3) mg/dL Total Bilirubin (0.2-1.3) mg/dL AST (14-36) U/L ALT (0-35) U/L Alkaline Phosphatase (38-126) U/L Troponin I < 0.012 (0.000-0.034) ng/mL NT-Pro-B Natriuret Pep (<300) pg/mL Serum Total Protein (6.3-8.2) g/dL Albumin (3.5-5.0) g/dL Prealbumin 4.22 L (17.6-36.0) mg/dL Procalcitonin (0.030-0.080) ng/mL Urine Color (Yellow) Urine Appearance (Clear) Urine pH (4.6-8.0) Ur Specific [place] (1.005-1.030) Urine Protein (Negative) Urine Glucose (UA) (Negative) mg/dL Urine Ketones (Negative) Urine Blood (Negative) Urine Nitrite (Negative) Urine Bilirubin (Negative) Urine Urobilinogen (0.2) mg/dL Ur Leukocyte Esterase (Negative) U Hyaline Cast (Auto) (0-2) /LPF Urine Microscopic RBC (0-5) /HPF Urine Microscopic WBC (0-5) /HPF Ur Epithelial Cells (None Seen) /HPF Urine Bacteria (None Seen) /HPF Urine Culture Reflexed (NO) Influenza Type A Ag (NEGATIVE) Influenza Type B Ag (NEGATIVE) RSV (PCR) (NEGATIVE) SARS-CoV-2 (PCR) (NEGATIVE) - Radiology Impressions Radiology Exams & Impressions: Radiology Procedures Category Date Time Status CHEST 1 VIEW (PORTABLE) Stat Exams 10/18/23 19:53 Taken CHEST WITHOUT CONTRAST [CT] Stat Exams 10/18/23 23:07 Completed - Other Procedures and Tests Respiratory Therapy 10/19/23 01:33 Respiratory Therapy Assessment DAILY Assessment/Plan (1) Cellulitis of perineum Current Visit: Yes Status: Acute Assessment & Plan: ASSESSMENT 1. Perineal Cellulitis 2. Urinary Tract Infection 3. Hyponatremia 4. Coagulopathy with Elevated INR 5. Thrombocytopenia 6. Elevated Lactate 7. Hypertension 8. Hyperlipidemia 9. Emphysematous COPD 10. Prior CVA on Coumadin PLAN 1. Broad Abx 2. Follow cultures 3. Recommend wound care follow if available 4. Analgesics 5. Nebs PRN 6. Lactate trending down 7. CT without evidence of pneumonia Lovenox The entirety of this encounter was done via telemedicine Yash Rojas MD Pulmonary and Critical Care Medicine Code(s): L03.315 - CELLULITIS OF PERINEUM Telemedicine Encounter - Telemedicine Encounter Telemedicine Encounter: The entirety of this encounter was performed via Telemedicine"
[2023-10-19] MEDS ORDERED: PIPERACILLIN/TAZOBACTAM 3.375 GM in Sodium Chloride 100ML MINI-BAG PLUS 100 ML IV SCH (06:00)
[2023-10-19 06:04] LABS: INR 2.1 (0.8-3.0); PROTIME 21.8 SECONDS (9.4-12.5)
--- NOTE | 2023-10-19 07:54 | PCM.NOTE ---
Date and Time: 10/19/23 5407 Subjective Assessment: Ms. 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 She admits to one week of pain, and upon arrival to [place], exam revealed infection of the perineal area in the setting of laboratory data that revealed elevated INR, thrombocytopenia, hyponatremia, and elevated lactate. Imaging was unremarkable. Patient admitted for perineal cellulitis, UTI, hyponatremia, supratherapeutic INR. Plan for abx, wound care. 10/19: Met with patient bedside. Endorses continued perineal pain. Patient has right- sided residual weakness from previous CVA. She ambulates via . Patient lives alone with no assistance available to help with ADLs. Upon exam perineal area and bilateral buttock are excoriated. Patient states she does wear incontinence pads. She declines SNF placement but is open to [facility]. She is diagnosed with COVID but no recent sick contacts and is asymptomatic. Denies fever,cough, sob, cp, abdominal pain, GUIDO, dizziness, N/V/D. Plan to continue abx/wound care for now, may be able to dismiss in the morning. <KARON DIEGO - Last Filed: 10/19/23 12:59> Date and Time: 10/19/23 5307 <FIONA CRUMP - Last Filed: 10/19/23 22:59> - Review of Systems Constitutional: Weakness Eyes: No Symptoms Ears, Nose, & Throat: No Symptoms Respiratory: No Symptoms Cardiac: No Symptoms Abdominal/Gastrointestinal: No Symptoms Genitourinary Symptoms: Incontinence, Other (incontinence dermatitis vs cellulitis with excoration to perineal/ bilateral buttocks) Musculoskeletal: No Symptoms Skin: Cellulitis (-see ) Neurological: Other (Right-sided residual weakness) Psychological: No Symptoms Endocrine: No Symptoms Hematologic/Lymphatic: No Symptoms Immunological/Allergic: No Symptoms <KARON DIEGO - Last Filed: 10/19/23 12:59> Objective Exam General Appearance: no apparent distress Neurologic Exam: alert, oriented x 3, cooperative Skin Exam: other (incontinence dermatitis with possible superimposed cellulitis to perineal/bilateral buttocks) Eye Exam: PERRL Ears, Nose, Throat Exam: normal ENT inspection Neck Exam: normal inspection Respiratory Exam: normal breath sounds, lungs clear Cardiovascular Exam: regular rate/rhythm, normal heart sounds Gastrointestinal/Abdomen Exam: soft, normal bowel sounds Extremity Exam: other (Right-sided residual weakness to RUE/RLE s/p CVA) Back Exam: normal inspection Pelvic Exam: other (-see skin exam) Rectal Exam: deferred <KARON DIGEO - Last Filed: 10/19/23 12:59> OBJECTIVE DATA Vital Signs: Vital Signs - 24 hr Temp Pulse Resp BP BP Pulse Ox 10/19/23 07:40 98.1 F 64 25 H 133/60 95 10/19/23 07:38 66 18 95 10/19/23 06:00 24 10/19/23 04:00 24 10/19/23 01:42 24 10/19/23 01:34 74 24 98 10/19/23 00:55 97.5 F 78 26 H 158/83 97 10/19/23 00:30 66 15 142/89 97 10/19/23 00:00 63 26 H 148/82 97 10/18/23 23:30 68 30 H 139/78 97 10/18/23 22:30 65 20 170/108 97 10/18/23 22:00 66 29 H 183/80 97 10/18/23 21:47 96 10/18/23 21:32 65 31 H 185/112 10/18/23 21:00 67 22 192/96 96 10/18/23 20:30 70 26 H 200/133 98 10/18/23 19:30 66 29 H 197/103 97 10/18/23 19:28 97.8 F 75 20 204/116 96 Pain Assessment - Last Documented Pain Intensity 0 Intake and Output: Intake & Output 10/16/23 10/17/23 10/18/23 10/19/23 11:59 11:59 11:59 11:59 Output Total 200 Balance -200 Weight 55.4 kg Lab Results: Lab Results-Last 24 Hours 10/18/23 10/18/23 10/18/23 Range/Units 19:40 19:40 19:40 WBC 9.0 (4.0-10.5) x10^3/uL RBC 6.43 H (4.1-5.4) x10^6/uL Hgb 14.8 (12.0-16.0) g/dL Hct 47.4 H (35-47) % MCV 73.7 L (78-100) fL MCH 23.0 L (26-32) pg MCHC 31.2 L (32-36) g/dL RDW 19.5 H (11.5-14.0) % Plt Count 114 L (150-450) x10^3/uL MPV (7.5-11.0) fL Gran % 75.8 H (36.0-66.0) % Immature Gran % (Auto) 0.4 (0.00-0.4) % Nucleat RBC Rel Count 0.0 (0.00-0.1) % Eos # (Auto) 0.02 (0-0.5) x10^3/uL Immature Gran # (Auto) 0.04 H (0.00-0.03) x10^3u/L Absolute Lymphs (auto) 1.50 (1.0-4.6) x10^3/uL Absolute Monos (auto) 0.62 (0.0-1.3) x10^3/uL Absolute Nucleated RBC 0.00 (0.00-0.01) x10^3u/L Lymphocytes % 16.6 L (24.0-44.0) % Monocytes % 6.9 (0.0-12.0) % Eosinophils % 0.2 (0.00-5.0) % Basophils % 0.1 (0.0-0.4) % Absolute Granulocytes 6.84 (1.4-6.9) x10^3/uL Basophils # 0.01 (0-0.4) x10^3/uL PT (9.4-12.5) SECONDS INR (0.8-3.0) Sodium 132 L (137-145) mmol/L Potassium 3.9 (3.5-5.1) mmol/L Chloride 98 (98-107) mmol/L Carbon Dioxide 18 L (22-30) mmol/L Anion Gap 20.1 H (5-15) MEQ/L BUN 23 H (7-17) mg/dL Creatinine 0.81 (0.52-1.04) mg/dL Estimated GFR 78.5 ML/MIN Glucose 88 (74-106) mg/dL Lactic Acid (0.4-2.0) Calcium 9.6 (8.4-10.2) mg/dL Magnesium 2.0 (1.6-2.3) mg/dL Total Bilirubin 1.60 H (0.2-1.3) mg/dL AST 30 (14-36) U/L ALT 14 (0-35) U/L Alkaline Phosphatase 141 H (38-126) U/L Troponin I < 0.012 (0.000-0.034) ng/mL NT-Pro-B Natriuret Pep 3340 (<300) pg/mL Serum Total Protein 8.5 H (6.3-8.2) g/dL Albumin 4.1 (3.5-5.0) g/dL Prealbumin (17.6-36.0) mg/dL Procalcitonin 0.094 H (0.030-0.080) ng/mL Urine Color (Yellow) Urine Appearance (Clear) Urine pH (4.6-8.0) Ur Specific Reading (1.005-1.030) Urine Protein (Negative) Urine Glucose (UA) (Negative) mg/dL Urine Ketones (Negative) Urine Blood (Negative) Urine Nitrite (Negative) Urine Bilirubin (Negative) Urine Urobilinogen (0.2) mg/dL Ur Leukocyte Esterase (Negative) U Hyaline Cast (Auto) (0-2) /LPF Urine Microscopic RBC (0-5) /HPF Urine Microscopic WBC (0-5) /HPF Ur Epithelial Cells (None Seen) /HPF Urine Bacteria (None Seen) /HPF Urine Culture Reflexed (NO) Influenza Type A Ag (NEGATIVE) Influenza Type B Ag (NEGATIVE) RSV (PCR) (NEGATIVE) SARS-CoV-2 (PCR) (NEGATIVE) 10/18/23 10/18/23 10/18/23 Range/Units 19:40 19:47 20:10 WBC (4.0-10.5) x10^3/uL RBC (4.1-5.4) x10^6/uL Hgb (12.0-16.0) g/dL Hct (35-47) % MCV (78-100) fL MCH (26-32) pg MCHC (32-36) g/dL RDW (11.5-14.0) % Plt Count (150-450) x10^3/uL MPV (7.5-11.0) fL Gran % (36.0-66.0) % Immature Gran % (Auto) (0.00-0.4) % Nucleat RBC Rel Count (0.00-0.1) % Eos # (Auto) (0-0.5) x10^3/uL Immature Gran # (Auto) (0.00-0.03) x10^3u/L Absolute Lymphs (auto) (1.0-4.6) x10^3/uL Absolute Monos (auto) (0.0-1.3) x10^3/uL Absolute Nucleated RBC (0.00-0.01) x10^3u/L Lymphocytes % (24.0-44.0) % Monocytes % (0.0-12.0) % Eosinophils % (0.00-5.0) % Basophils % (0.0-0.4) % Absolute Granulocytes (1.4-6.9) x10^3/uL Basophils # (0-0.4) x10^3/uL PT 58.1 H (9.4-12.5) SECONDS INR 5.99 H* (0.8-3.0) Sodium (137-145) mmol/L Potassium (3.5-5.1) mmol/L Chloride (98-107) mmol/L Carbon Dioxide (22-30) mmol/L Anion Gap (5-15) MEQ/L BUN (7-17) mg/dL Creatinine (0.52-1.04) mg/dL Estimated GFR ML/MIN Glucose (74-106) mg/dL Lactic Acid 2.4 H (0.4-2.0) Calcium (8.4-10.2) mg/dL Magnesium (1.6-2.3) mg/dL Total Bilirubin (0.2-1.3) mg/dL AST (14-36) U/L ALT (0-35) U/L Alkaline Phosphatase (38-126) U/L Troponin I (0.000-0.034) ng/mL NT-Pro-B Natriuret Pep (<300) pg/mL Serum Total Protein (6.3-8.2) g/dL Albumin (3.5-5.0) g/dL Prealbumin (17.6-36.0) mg/dL Procalcitonin (0.030-0.080) ng/mL Urine Color (Yellow) Urine Appearance (Clear) Urine pH (4.6-8.0) Ur Specific Reading (1.005-1.030) Urine Protein (Negative) Urine Glucose (UA) (Negative) mg/dL Urine Ketones (Negative) Urine Blood (Negative) Urine Nitrite (Negative) Urine Bilirubin (Negative) Urine Urobilinogen (0.2) mg/dL Ur Leukocyte Esterase (Negative) U Hyaline Cast (Auto) (0-2) /LPF Urine Microscopic RBC (0-5) /HPF Urine Microscopic WBC (0-5) /HPF Ur Epithelial Cells (None Seen) /HPF Urine Bacteria (None Seen) /HPF Urine Culture Reflexed (NO) Influenza Type A Ag NEGATIVE (NEGATIVE) Influenza Type B Ag NEGATIVE (NEGATIVE) RSV (PCR) NEGATIVE (NEGATIVE) SARS-CoV-2 (PCR) POSITIVE A (NEGATIVE) 10/18/23 10/18/23 10/18/23 Range/Units 21:49 23:01 23:23 WBC (4.0-10.5) x10^3/uL RBC (4.1-5.4) x10^6/uL Hgb (12.0-16.0) g/dL Hct (35-47) % MCV (78-100) fL MCH (26-32) pg MCHC (32-36) g/dL RDW (11.5-14.0) % Plt Count (150-450) x10^3/uL MPV (7.5-11.0) fL Gran % (36.0-66.0) % Immature Gran % (Auto) (0.00-0.4) % Nucleat RBC Rel Count (0.00-0.1) % Eos # (Auto) (0-0.5) x10^3/uL Immature Gran # (Auto) (0.00-0.03) x10^3u/L Absolute Lymphs (auto) (1.0-4.6) x10^3/uL Absolute Monos (auto) (0.0-1.3) x10^3/uL Absolute Nucleated RBC (0.00-0.01) x10^3u/L Lymphocytes % (24.0-44.0) % Monocytes % (0.0-12.0) % Eosinophils % (0.00-5.0) % Basophils % (0.0-0.4) % Absolute Granulocytes (1.4-6.9) x10^3/uL Basophils # (0-0.4) x10^3/uL PT (9.4-12.5) SECONDS INR (0.8-3.0) Sodium (137-145) mmol/L Potassium (3.5-5.1) mmol/L Chloride (98-107) mmol/L Carbon Dioxide (22-30) mmol/L Anion Gap (5-15) MEQ/L BUN (7-17) mg/dL Creatinine (0.52-1.04) mg/dL Estimated GFR ML/MIN Glucose (74-106) mg/dL Lactic Acid 1.8 (0.4-2.0) Calcium (8.4-10.2) mg/dL Magnesium (1.6-2.3) mg/dL Total Bilirubin (0.2-1.3) mg/dL AST (14-36) U/L ALT (0-35) U/L Alkaline Phosphatase (38-126) U/L Troponin I 0.012 (0.000-0.034) ng/mL NT-Pro-B Natriuret Pep (<300) pg/mL Serum Total Protein (6.3-8.2) g/dL Albumin (3.5-5.0) g/dL Prealbumin (17.6-36.0) mg/dL Procalcitonin (0.030-0.080) ng/mL Urine Color Dark Yellow A (Yellow) Urine Appearance Cloudy A (Clear) Urine pH 5.5 (4.6-8.0) Ur Specific Reading 1.025 (1.005-1.030) Urine Protein 100 A (Negative) Urine Glucose (UA) Negative (Negative) mg/dL Urine Ketones 80 A (Negative) Urine Blood Trace (Negative) Urine Nitrite Positive A (Negative) Urine Bilirubin Small A (Negative) Urine Urobilinogen 1.0 A (0.2) mg/dL Ur Leukocyte Esterase Moderate A (Negative) U Hyaline Cast (Auto) 11-20 (0-2) /LPF Urine Microscopic RBC 0-2 (0-5) /HPF Urine Microscopic WBC >100 A (0-5) /HPF Ur Epithelial Cells Rare (None Seen) /HPF Urine Bacteria Many A (None Seen) /HPF Urine Culture Reflexed YES (NO) Influenza Type A Ag (NEGATIVE) Influenza Type B Ag (NEGATIVE) RSV (PCR) (NEGATIVE) SARS-CoV-2 (PCR) (NEGATIVE) 10/19/23 10/19/23 10/19/23 Range/Units 03:30 03:30 03:30 WBC 8.4 (4.0-10.5) x10^3/uL RBC 5.21 (4.1-5.4) x10^6/uL Hgb 12.2 (12.0-16.0) g/dL Hct 38.0 (35-47) % MCV 72.9 L (78-100) fL MCH 23.4 L (26-32) pg MCHC 32.1 (32-36) g/dL RDW 18.6 H (11.5-14.0) % Plt Count 103 L (150-450) x10^3/uL MPV 11.1 H (7.5-11.0) fL Gran % (36.0-66.0) % Immature Gran % (Auto) (0.00-0.4) % Nucleat RBC Rel Count (0.00-0.1) % Eos # (Auto) (0-0.5) x10^3/uL Immature Gran # (Auto) (0.00-0.03) x10^3u/L Absolute Lymphs (auto) (1.0-4.6) x10^3/uL Absolute Monos (auto) (0.0-1.3) x10^3/uL Absolute Nucleated RBC (0.00-0.01) x10^3u/L Lymphocytes % (24.0-44.0) % Monocytes % (0.0-12.0) % Eosinophils % (0.00-5.0) % Basophils % (0.0-0.4) % Absolute Granulocytes (1.4-6.9) x10^3/uL Basophils # (0-0.4) x10^3/uL PT (9.4-12.5) SECONDS INR (0.8-3.0) Sodium 129 L (137-145) mmol/L Potassium 3.6 (3.5-5.1) mmol/L Chloride 103 (98-107) mmol/L Carbon Dioxide 17 L (22-30) mmol/L Anion Gap 12.1 (5-15) MEQ/L BUN 21 H (7-17) mg/dL Creatinine 0.59 (0.52-1.04) mg/dL Estimated GFR 97.5 ML/MIN Glucose 74 (74-106) mg/dL Lactic Acid (0.4-2.0) Calcium 8.2 L (8.4-10.2) mg/dL Magnesium (1.6-2.3) mg/dL Total Bilirubin (0.2-1.3) mg/dL AST (14-36) U/L ALT (0-35) U/L Alkaline Phosphatase (38-126) U/L Troponin I < 0.012 (0.000-0.034) ng/mL NT-Pro-B Natriuret Pep (<300) pg/mL Serum Total Protein (6.3-8.2) g/dL Albumin (3.5-5.0) g/dL Prealbumin 4.22 L (17.6-36.0) mg/dL Procalcitonin (0.030-0.080) ng/mL Urine Color (Yellow) Urine Appearance (Clear) Urine pH (4.6-8.0) Ur Specific Reading (1.005-1.030) Urine Protein (Negative) Urine Glucose (UA) (Negative) mg/dL Urine Ketones (Negative) Urine Blood (Negative) Urine Nitrite (Negative) Urine Bilirubin (Negative) Urine Urobilinogen (0.2) mg/dL Ur Leukocyte Esterase (Negative) U Hyaline Cast (Auto) (0-2) /LPF Urine Microscopic RBC (0-5) /HPF Urine Microscopic WBC (0-5) /HPF Ur Epithelial Cells (None Seen) /HPF Urine Bacteria (None Seen) /HPF Urine Culture Reflexed (NO) Influenza Type A Ag (NEGATIVE) Influenza Type B Ag (NEGATIVE) RSV (PCR) (NEGATIVE) SARS-CoV-2 (PCR) (NEGATIVE) 10/19/23 Range/Units 04:45 WBC (4.0-10.5) x10^3/uL RBC (4.1-5.4) x10^6/uL Hgb (12.0-16.0) g/dL Hct (35-47) % MCV (78-100) fL MCH (26-32) pg MCHC (32-36) g/dL RDW (11.5-14.0) % Plt Count (150-450) x10^3/uL MPV (7.5-11.0) fL Gran % (36.0-66.0) % Immature Gran % (Auto) (0.00-0.4) % Nucleat RBC Rel Count (0.00-0.1) % Eos # (Auto) (0-0.5) x10^3/uL Immature Gran # (Auto) (0.00-0.03) x10^3u/L Absolute Lymphs (auto) (1.0-4.6) x10^3/uL Absolute Monos (auto) (0.0-1.3) x10^3/uL Absolute Nucleated RBC (0.00-0.01) x10^3u/L Lymphocytes % (24.0-44.0) % Monocytes % (0.0-12.0) % Eosinophils % (0.00-5.0) % Basophils % (0.0-0.4) % Absolute Granulocytes (1.4-6.9) x10^3/uL Basophils # (0-0.4) x10^3/uL PT 21.8 H (9.4-12.5) SECONDS INR 2.10 D (0.8-3.0) Sodium (137-145) mmol/L Potassium (3.5-5.1) mmol/L Chloride (98-107) mmol/L Carbon Dioxide (22-30) mmol/L Anion Gap (5-15) MEQ/L BUN (7-17) mg/dL Creatinine (0.52-1.04) mg/dL Estimated GFR ML/MIN Glucose (74-106) mg/dL Lactic Acid (0.4-2.0) Calcium (8.4-10.2) mg/dL Magnesium (1.6-2.3) mg/dL Total Bilirubin (0.2-1.3) mg/dL AST (14-36) U/L ALT (0-35) U/L Alkaline Phosphatase (38-126) U/L Troponin I (0.000-0.034) ng/mL NT-Pro-B Natriuret Pep (<300) pg/mL Serum Total Protein (6.3-8.2) g/dL Albumin (3.5-5.0) g/dL Prealbumin (17.6-36.0) mg/dL Procalcitonin (0.030-0.080) ng/mL Urine Color (Yellow) Urine Appearance (Clear) Urine pH (4.6-8.0) Ur Specific Reading (1.005-1.030) Urine Protein (Negative) Urine Glucose (UA) (Negative) mg/dL Urine Ketones (Negative) Urine Blood (Negative) Urine Nitrite (Negative) Urine Bilirubin (Negative) Urine Urobilinogen (0.2) mg/dL Ur Leukocyte Esterase (Negative) U Hyaline Cast (Auto) (0-2) /LPF Urine Microscopic RBC (0-5) /HPF Urine Microscopic WBC (0-5) /HPF Ur Epithelial Cells (None Seen) /HPF Urine Bacteria (None Seen) /HPF Urine Culture Reflexed (NO) Influenza Type A Ag (NEGATIVE) Influenza Type B Ag (NEGATIVE) RSV (PCR) (NEGATIVE) SARS-CoV-2 (PCR) (NEGATIVE) Radiology Exams: Radiology Procedures Category Date Time Status CHEST 1 VIEW (PORTABLE) Stat Exams 10/18/23 19:53 Taken CHEST WITHOUT CONTRAST [CT] Stat Exams 10/18/23 23:07 Completed <KARON DIEGO - Last Filed: 10/19/23 12:59> Vital Signs: Vital Signs - 24 hr Temp Pulse Resp BP BP Pulse Ox 10/19/23 22:00 18 10/19/23 20:00 98.4 F 68 18 142/74 94 L 10/19/23 18:40 65 18 94 L 10/19/23 18:00 32 H 10/19/23 16:00 74 32 H 147/71 95 10/19/23 14:08 29 H 10/19/23 12:00 98.1 F 64 29 H 179/79 94 L 10/19/23 10:00 29 H 10/19/23 08:00 25 H 10/19/23 07:40 98.1 F 64 25 H 133/60 95 10/19/23 07:38 66 18 95 10/19/23 06:00 24 10/19/23 04:00 24 10/19/23 01:42 24 10/19/23 01:34 74 24 98 10/19/23 00:55 97.5 F 78 26 H 158/83 97 10/19/23 00:30 66 15 142/89 97 10/19/23 00:00 63 26 H 148/82 97 10/18/23 23:30 68 30 H 139/78 97 Pain Assessment - Last Documented Pain Intensity 0 Intake and Output: Intake & Output 10/17/23 10/18/23 10/19/23 10/20/23 11:59 11:59 11:59 11:59 Intake Total 280 120 Output Total 200 850 Balance 80 -730 Weight 55.4 kg Lab Results: Lab Results-Last 24 Hours 10/18/23 10/18/23 10/18/23 Range/Units 21:49 23:01 23:23 WBC (4.0-10.5) x10^3/uL RBC (4.1-5.4) x10^6/uL Hgb (12.0-16.0) g/dL Hct (35-47) % MCV (78-100) fL MCH (26-32) pg MCHC (32-36) g/dL RDW (11.5-14.0) % Plt Count (150-450) x10^3/uL MPV (7.5-11.0) fL PT (9.4-12.5) SECONDS INR (0.8-3.0) Sodium (137-145) mmol/L Potassium (3.5-5.1) mmol/L Chloride (98-107) mmol/L Carbon Dioxide (22-30) mmol/L Anion Gap (5-15) MEQ/L BUN (7-17) mg/dL Creatinine (0.52-1.04) mg/dL Estimated GFR ML/MIN Glucose (74-106) mg/dL Lactic Acid 1.8 (0.4-2.0) Calcium (8.4-10.2) mg/dL Troponin I 0.012 (0.000-0.034) ng/mL Prealbumin (17.6-36.0) mg/dL Urine Color Dark Yellow A (Yellow) Urine Appearance Cloudy A (Clear) Urine pH 5.5 (4.6-8.0) Ur Specific Reading 1.025 (1.005-1.030) Urine Protein 100 A (Negative) Urine Glucose (UA) Negative (Negative) mg/dL Urine Ketones 80 A (Negative) Urine Blood Trace (Negative) Urine Nitrite Positive A (Negative) Urine Bilirubin Small A (Negative) Urine Urobilinogen 1.0 A (0.2) mg/dL Ur Leukocyte Esterase Moderate A (Negative) U Hyaline Cast (Auto) 11-20 (0-2) /LPF Urine Microscopic RBC 0-2 (0-5) /HPF Urine Microscopic WBC >100 A (0-5) /HPF Ur Epithelial Cells Rare (None Seen) /HPF Urine Bacteria Many A (None Seen) /HPF Urine Culture Reflexed YES (NO) 10/19/23 10/19/23 10/19/23 Range/Units 03:30 03:30 03:30 WBC 8.4 (4.0-10.5) x10^3/uL RBC 5.21 (4.1-5.4) x10^6/uL Hgb 12.2 (12.0-16.0) g/dL Hct 38.0 (35-47) % MCV 72.9 L (78-100) fL MCH 23.4 L (26-32) pg MCHC 32.1 (32-36) g/dL RDW 18.6 H (11.5-14.0) % Plt Count 103 L (150-450) x10^3/uL MPV 11.1 H (7.5-11.0) fL PT (9.4-12.5) SECONDS INR (0.8-3.0) Sodium 129 L (137-145) mmol/L Potassium 3.6 (3.5-5.1) mmol/L Chloride 103 (98-107) mmol/L Carbon Dioxide 17 L (22-30) mmol/L Anion Gap 12.1 (5-15) MEQ/L BUN 21 H (7-17) mg/dL Creatinine 0.59 (0.52-1.04) mg/dL Estimated GFR 97.5 ML/MIN Glucose 74 (74-106) mg/dL Lactic Acid (0.4-2.0) Calcium 8.2 L (8.4-10.2) mg/dL Troponin I < 0.012 (0.000-0.034) ng/mL Prealbumin 4.22 L (17.6-36.0) mg/dL Urine Color (Yellow) Urine Appearance (Clear) Urine pH (4.6-8.0) Ur Specific Reading (1.005-1.030) Urine Protein (Negative) Urine Glucose (UA) (Negative) mg/dL Urine Ketones (Negative) Urine Blood (Negative) Urine Nitrite (Negative) Urine Bilirubin (Negative) Urine Urobilinogen (0.2) mg/dL Ur Leukocyte Esterase (Negative) U Hyaline Cast (Auto) (0-2) /LPF Urine Microscopic RBC (0-5) /HPF Urine Microscopic WBC (0-5) /HPF Ur Epithelial Cells (None Seen) /HPF Urine Bacteria (None Seen) /HPF Urine Culture Reflexed (NO) 10/19/23 10/19/23 Range/Units 04:45 10:41 WBC (4.0-10.5) x10^3/uL RBC (4.1-5.4) x10^6/uL Hgb (12.0-16.0) g/dL Hct (35-47) % MCV (78-100) fL MCH (26-32) pg MCHC (32-36) g/dL RDW (11.5-14.0) % Plt Count (150-450) x10^3/uL MPV (7.5-11.0) fL PT 21.8 H (9.4-12.5) SECONDS INR 2.10 D (0.8-3.0) Sodium 131 L (137-145) mmol/L Potassium (3.5-5.1) mmol/L Chloride (98-107) mmol/L Carbon Dioxide (22-30) mmol/L Anion Gap (5-15) MEQ/L BUN (7-17) mg/dL Creatinine (0.52-1.04) mg/dL Estimated GFR ML/MIN Glucose (74-106) mg/dL Lactic Acid (0.4-2.0) Calcium (8.4-10.2) mg/dL Troponin I (0.000-0.034) ng/mL Prealbumin (17.6-36.0) mg/dL Urine Color (Yellow) Urine Appearance (Clear) Urine pH (4.6-8.0) Ur Specific Reading (1.005-1.030) Urine Protein (Negative) Urine Glucose (UA) (Negative) mg/dL Urine Ketones (Negative) Urine Blood (Negative) Urine Nitrite (Negative) Urine Bilirubin (Negative) Urine Urobilinogen (0.2) mg/dL Ur Leukocyte Esterase (Negative) U Hyaline Cast (Auto) (0-2) /LPF Urine Microscopic RBC (0-5) /HPF Urine Microscopic WBC (0-5) /HPF Ur Epithelial Cells (None Seen) /HPF Urine Bacteria (None Seen) /HPF Urine Culture Reflexed (NO) Radiology Exams: Radiology Procedures Category Date Time Status CHEST 1 VIEW (PORTABLE) Stat Exams 10/18/23 19:53 Completed CHEST WITHOUT CONTRAST [CT] Stat Exams 10/18/23 23:07 Completed Multi-Disciplinary Progress Notes: Multi-Disciplinary Progress Notes 10/19/23 16:38 Case Management Note by Margarita Rodriguez S/W PATIENT- SHE IS A&O X 3. SHE AGAIN IS ADAMENT SHE WILL NOT GO TO A FACILITY " IM NOT GOING TO [facility]" IS WHAT SHE SAID. SHE IS AGREEABLE TO [facility] BUT KNOWS THEY ARE NOT THERE ALL THE TIME. SHE CAN REPORTS SHE CAN GET BACK AND FORTH TO THE BATHROOM AT HOME WELL THE KITCHEN. SHE REPORTS HER GRANDDAUGHTER GETS HER GROCERIES AND TAKES HER TO FOLLOW UP APTS. SHE ALSO REPORTS HER GRANDDAUGHTER MERLENE WILL BE THE ONE TO PICK HER UP. ATTEMPTED TO CALL AND S/W MERLENE ABOUT THIS- NO ANSWER- LUDWIN. ANNA MARIE BECKER NOTIFIED. Initialized on 10/19/23 16:38 - END OF NOTE 10/19/23 14:46 Case Management Note by Marybel Leavitt Addendum entered by Margarita Rodriguez 10/19/23 16:41: [phone] IS PHONE NUMBER Original Note: ATTEMPTED TO CALLED PATIENT [facility] PER HER REQUEST SEVERAL TIMES WITH NO ANSWER. LEFT MESSAGE FOR HER TO CALL BACK TO [facility] [facility]. [facility] BLUNT [employer]EN [phone]. Initialized on 10/19/23 14:46 - END OF NOTE 10/19/23 11:09 Case Management Note by Marybel Leavitt PATIENT REFUSES ANY TYPE OF REHAB STAY. IS AGREEABLE TO [facility]. WANTS TO GO WITH [facility]. CALLED AND REFERRAL FAXED TO [facility].. REFERRAL FAXED TO [facility]. WILL NEED TO CONTACT [facility] AT TIME OF DC AT [phone]. WILL NEED TO FAX DC INSTRUCTIONS, DC MED LIST AND DC SUMMARY IF AVAILABLE TO [phone]. Initialized on 10/19/23 11:09 - END OF NOTE 10/19/23 11:05 Pharmacy Note by Anselmo Snyder Will start Coumadin at 3mg daily today. INR is ordered daily. Will monitor and adjust dose if needed. Initialized on 10/19/23 11:05 - END OF NOTE 10/19/23 07:53 Pharmacy Note by Alejandro Huntley Pharmacokinetic dosing service Date: 10/19/2023 Time: 0800 Objective: Patient: Miek Rondon Floor: 109 Age: 67 yo Serum creatinine: 0.59 mg/dL Height: 62 Inches Weight (kg): 55 Diagnosis: Perineal Cellulitis Relevant medical/social history: Cultures and sensitivities: Pending Other labs: Procalcitonin = 0.094 WBC = 8.4 Assessment: IBW (kg): 50.10 Dosing wt(kg): 55 Estimated Creatinine clearance (ml/min): 71.2 CRCL method: Cockcroft and Gault using ibw(default). Drug selected: Vancomycin Loading dose (mg): 0 Vd (liters): 38.5 (factor used: 0.7 L/kg) Aiden (hr-1): 0.063 Half life (hrs): 11.00 Recommended dose: 1000 mg Interval: 18 hrs Infusion time (hrs): 1.5 Predicted peak (mcg/mL): 36.5 Predicted trough (mcg/mL): 12.91 Total body weight is being used for vancomycin dosing. Renal function is stable [xxx] /unstable [ ] Recommendations: Give Vancomycin 1000 mg q 18 hrs with an expected Cpeak of 36.5 mcg/ml and an expected Ctrough of 12.91 mcg/ml Renal dosing of other antibiotics (review renal dosing of other medications and list guidelines here): None Thank you for the consult, will continue to follow. Signature: Vin Huntley Initialized on 10/19/23 07:53 - END OF NOTE <FIONA CRUMP - Last Filed: 10/19/23 22:59> Assessment/Plan (1) COVID Current Visit: Yes Status: Acute Assessment & Plan: -CT chest IMPRESSION: Chronic obstructive pulmonary disease. Dilatation of the main pulmonary trunk and its branches, the possibility of pulmonary hypertension needs to be excluded. 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 Consider CTA if warranted clinically. -no hypoxia, on RA - no indication for remdesivir Code(s): U07.1 - COVID-19 (2) UTI (urinary tract infection) Current Visit: Yes Status: Acute Assessment & Plan: -Ceftriaxone for coverage of cellulitis/UTI, pending culture Code(s): N39.0 - URINARY TRACT INFECTION, SITE NOT SPECIFIED (3) Cellulitis of perineum Current Visit: Yes Status: Acute Assessment & Plan: -Cellulitis vs incontinence dermitis -Zosyn/vanc d/cd, patient has anaphylaxis allergy to pcn, will start ceftriaxone -wound care Code(s): L03.315 - CELLULITIS OF PERINEUM (4) Generalized weakness Current Visit: Yes Status: Acute Assessment & Plan: -PT/OT eval Code(s): R53.1 - WEAKNESS (5) Hyponatremia Current Visit: Yes Status: Acute Assessment & Plan: -IVF at 100ml/hr -Monitor for fluid overload -BMP q4h -Tele Code(s): E87.1 - HYPO-OSMOLALITY AND HYPONATREMIA (6) Supratherapeutic INR Current Visit: Yes Status: Acute Assessment & Plan: -patient received vitamin K in ED, now in therapeutic range, pharmacy to dose coumadin Code(s): R79.1 - ABNORMAL COAGULATION PROFILE (7) Thrombocytopenia Current Visit: Yes Status: Acute Assessment & Plan: -?reactive vs drug induced -continue to monitor and replace as appropriate <KARON DIEGO - Last Filed: 10/19/23 12:59> LAZARO Encounter - LAZARO Encounter Attestation LAZARO Encounter Attestation: "IhavepersonallysMIKE De Paz andleannevediscussed pertinent aspects of their care with Karon Sigala agree with the history, physical exam (any modifications based on my personal exam will be noted below), assessment, and plan as outlined in original note. Please see immediately below for my summary of findings and additional assessment and plan along with any meaningful corrections/explanations to the Subjective/Objective portions of the LAZARO note will be noted." My portion of the encounter took place via telemedicine. -Poor function status at baseline, prior stroke. Patient does not want placement. Will at least need home health. Currently being treated for UTI and perineal cellulitis with skin breakdown. Asymptomatic COVID <FIONA CRUMP - Last Filed: 10/19/23 22:59>
[2023-10-19] MEDS ORDERED: PHARMACY DOSING REQUEST MC ONE (08:14)
--- NOTE | 2023-10-19 08:48 | XRAY ---
Indication: Cough. Comparison: January 27, 2019 Portable chest now rotated with stable COPD. Inferior right upper lobe demonstrates new patchy infiltrate/atelectasis. Remaining heart and lungs unremarkable again with incidental right pacemaker. Bony thorax intact again with osteopenia, degenerative changes, and scoliosis.
[2023-10-19] MEDS ORDERED: ENOXAPARIN SODIUM SQ SCH (10:00)
[2023-10-19] MEDS: ROCEPHIN 1 Gm-D5w 50 ml Bag** 1 G/50 ML IVPB IV SCH (13:12)
[2023-10-19] MEDS: SODIUM BICARBONATE PO SCH ×2 (13:15→21:35)
[2023-10-19] MEDS: Lopressor 25MG Tab PO SCH (13:15)
[2023-10-19] MEDS: celeBREX 100 MG PO SCH (13:15)
[2023-10-19] MEDS ORDERED: CLINDAMYCIN-D5W 600 MG/50 ML*** 600 MG/50 ML BAG IV SCH (14:00)
[2023-10-19] MEDS: Zocor 10MG PO SCH (14:52)
[2023-10-19] MEDS: Protonix 20MG Tablet PO SCH (14:53)
[2023-10-19] MEDS ORDERED: Zofran 4 MG/2 ML VIAL IV PRN (17:19)
[2023-10-19] MEDS: Coumadin 3 MG PO SCH (17:56)
[2023-10-19] MEDS ORDERED: VENTOLIN COMMON CANISTER IH PRN (19:00)
[2023-10-20] MEDS ORDERED: VANCOMYCIN 1 GRAM/200 ML BAG 1 GM/200 ML PIGGYBACK IV SCH
--- NOTE | 2023-10-20 05:14 | PCM.NOTE ---
Date and Time: 10/20/23 8681 Subjective Assessment: Ms. 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 She admits to one week of pain, and upon arrival to [place], exam revealed infection of the perineal area in the setting of laboratory data that revealed elevated INR, thrombocytopenia, hyponatremia, and elevated lactate. Imaging was unremarkable. Patient admitted for perineal cellulitis, UTI, hyponatremia, supratherapeutic INR. Plan for abx, wound care. 10/19: Met with patient bedside. Endorses continued perineal pain. Patient has right- sided residual weakness from previous CVA. She ambulates via . Patient lives alone with no assistance available to help with ADLs. Upon exam perineal area and bilateral buttock are excoriated. Patient states she does wear incontinence pads. She declines SNF placement but is open to [facility]. She is diagnosed with COVID but no recent sick contacts and is asymptomatic. Denies fever,cough, sob, cp, abdominal pain, GUIDO, dizziness, N/V/D. Plan to continue abx/wound care for now, may be able to dismiss in the morning. 10/20: Examined patient bedside. Endorses improvement in perineal pain. UTI with Ecoli, sensitive to ceftriaxone. Will continue abx therapy. Patient requiring oxygen overnight due to desaturation, states she has been sob with a cough that developed yesterday. Has been weaned off the oxygen with spo2 @ 94% today. Patient with reported poor living conditions, declining SNF placement. <KARON DIEGO - Last Filed: 10/20/23 09:24> Date and Time: 10/20/233 <FIONA CRUMP - Last Filed: 10/20/23 22:13> - Review of Systems Constitutional: No Symptoms Eyes: No Symptoms Ears, Nose, & Throat: No Symptoms Respiratory: Cough, Short Of Breath <KARON DIEGO - Last Filed: 10/20/23 09:24> Objective Exam General Appearance: no apparent distress Neurologic Exam: alert, oriented x 3, cooperative Skin Exam: other (excoriation/open areas to perineum/bilateral buttocks) Eye Exam: PERRL Ears, Nose, Throat Exam: normal ENT inspection Neck Exam: normal inspection Respiratory Exam: normal breath sounds, lungs clear Cardiovascular Exam: regular rate/rhythm, normal heart sounds Gastrointestinal/Abdomen Exam: soft, normal bowel sounds Extremity Exam: normal inspection Back Exam: normal inspection, other (excoriation/open areas to perineum/bilateral buttocks) Rectal Exam: deferred <KARON DIEGO - Last Filed: 10/20/23 09:24> OBJECTIVE DATA Vital Signs: Vital Signs - 24 hr Temp Pulse Resp BP Pulse Ox 10/20/23 03:52 97.8 F 65 22 144/74 96 10/20/23 02:00 20 10/20/23 00:00 98.4 F 65 23 133/70 97 10/19/23 22:00 18 10/19/23 20:00 98.4 F 68 18 142/74 94 L 10/19/23 18:40 65 18 94 L 10/19/23 18:00 32 H 10/19/23 16:00 74 32 H 147/71 95 10/19/23 14:08 29 H 10/19/23 12:00 98.1 F 64 29 H 179/79 94 L 10/19/23 10:00 29 H 10/19/23 08:00 25 H 10/19/23 07:40 98.1 F 64 25 H 133/60 95 10/19/23 07:38 66 18 95 10/19/23 06:00 24 Pain Assessment - Last Documented Pain Intensity 0 Intake and Output: Intake & Output 10/17/23 10/18/23 10/19/23 10/20/23 11:59 11:59 11:59 11:59 Intake Total 280 120 Output Total 200 850 Balance 80 -730 Weight 55.4 kg Lab Results: Lab Results-Last 24 Hours 10/19/23 10/19/23 Range/Units 04:45 10:41 PT 21.8 H (9.4-12.5) SECONDS INR 2.10 D (0.8-3.0) Sodium 131 L (137-145) mmol/L Radiology Exams: Radiology Procedures Category Date Time Status CHEST 1 VIEW (PORTABLE) Stat Exams 10/18/23 19:53 Completed CHEST WITHOUT CONTRAST [CT] Stat Exams 10/18/23 23:07 Completed Multi-Disciplinary Progress Notes: Multi-Disciplinary Progress Notes 10/19/23 16:38 Case Management Note by Margarita Rodriguez S/W PATIENT- SHE IS A&O X 3. SHE AGAIN IS ADAMENT SHE WILL NOT GO TO A FACILITY " IM NOT GOING TO [facility]" IS WHAT SHE SAID. SHE IS AGREEABLE TO [facility] BUT KNOWS THEY ARE NOT THERE ALL THE TIME. SHE CAN REPORTS SHE CAN GET BACK AND FORTH TO THE BATHROOM AT HOME WELL THE KITCHEN. SHE REPORTS HER GRANDDAUGHTER GETS HER GROCERIES AND TAKES HER TO FOLLOW UP APTS. SHE ALSO REPORTS HER GRANDDAUGHTER MERLENE WILL BE THE ONE TO PICK HER UP. ATTEMPTED TO CALL AND S/W MERLENE ABOUT THIS- NO ANSWER- LM. ANNA MARIE HS NOTIFIED. Initialized on 10/19/23 16:38 - END OF NOTE 10/19/23 14:46 Case Management Note by Marybel Leavitt Addendum entered by Margarita Rodriguez 10/19/23 16:41: [phone] IS PHONE NUMBER Original Note: ATTEMPTED TO CALLED PATIENT [facility] PER HER REQUEST SEVERAL TIMES WITH NO ANSWER. LEFT MESSAGE FOR HER TO CALL BACK TO [facility]. [facility] QUESADAALICE [phone]. Initialized on 10/19/23 14:46 - END OF NOTE 10/19/23 11:09 Case Management Note by Marybel Leavitt PATIENT REFUSES ANY TYPE OF REHAB STAY. IS AGREEABLE TO [facility]. WANTS TO GO WITH [facility]. CALLED AND REFERRAL FAXED TO [facility].. REFERRAL FAXED TO [facility]. WILL NEED TO CONTACT [facility] AT TIME OF DC AT [phone]. WILL NEED TO FAX DC INSTRUCTIONS, DC MED LIST AND DC SUMMARY IF AVAILABLE TO [phone]. Initialized on 10/19/23 11:09 - END OF NOTE 10/19/23 11:05 Pharmacy Note by Anselmo Snyder Will start Coumadin at 3mg daily today. INR is ordered daily. Will monitor and adjust dose if needed. Initialized on 10/19/23 11:05 - END OF NOTE 10/19/23 07:53 Pharmacy Note by Alejandro Huntley Pharmacokinetic dosing service Date: 10/19/2023 Time: 08 Objective: Patient: Mike Rondon Floor: 109 Age: 67 yo Serum creatinine: 0.59 mg/dL Height: 62 Inches Weight (kg): 55 Diagnosis: Perineal Cellulitis Relevant medical/social history: Cultures and sensitivities: Pending Other labs: Procalcitonin = 0.094 WBC = 8.4 Assessment: IBW (kg): 50.10 Dosing wt(kg): 55 Estimated Creatinine clearance (ml/min): 71.2 CRCL method: Cockcroft and Gault using ibw(default). Drug selected: Vancomycin Loading dose (mg): 0 Vd (liters): 38.5 (factor used: 0.7 L/kg) Aiden (hr-1): 0.063 Half life (hrs): 11.00 Recommended dose: 1000 mg Interval: 18 hrs Infusion time (hrs): 1.5 Predicted peak (mcg/mL): 36.5 Predicted trough (mcg/mL): 12.91 Total body weight is being used for vancomycin dosing. Renal function is stable [xxx] /unstable [ ] Recommendations: Give Vancomycin 1000 mg q 18 hrs with an expected Cpeak of 36.5 mcg/ml and an expected Ctrough of 12.91 mcg/ml Renal dosing of other antibiotics (review renal dosing of other medications and list guidelines here): None Thank you for the consult, will continue to follow. Signature: Vin Huntley Initialized on 10/19/23 07:53 - END OF NOTE <KARON DIEGO - Last Filed: 10/20/23 09:24> Vital Signs: Vital Signs - 24 hr Temp Pulse Resp BP Pulse Ox 10/20/23 21:51 18 10/20/23 20:00 97.5 F 68 18 132/79 91 L 10/20/23 18:50 65 18 91 L 10/20/23 18:41 96 10/20/23 18:13 21 10/20/23 16:21 96.5 F 64 21 121/65 95 10/20/23 16:19 18 10/20/23 14:00 16 10/20/23 12:24 18 10/20/23 12:00 96.7 F 64 21 121/64 96 10/20/23 10:15 65 16 135/96 96 10/20/23 10:13 26 H 10/20/23 08:59 26 H 10/20/23 08:00 97 F 65 26 H 156/80 92 L 10/20/23 07:50 104 H 24 92 L 10/20/23 06:00 22 10/20/23 03:52 97.8 F 65 22 144/74 96 10/20/23 02:00 20 10/20/23 00:00 98.4 F 65 23 133/70 97 Pain Assessment - Last Documented Pain Intensity 0 Intake and Output: Intake & Output 10/18/23 10/19/23 10/20/23 10/21/23 11:59 11:59 11:59 11:59 Intake Total 280 240 440 Output Total 200 850 350 Balance 80 -610 90 Weight 55.4 kg Lab Results: Lab Results-Last 24 Hours 10/20/23 10/20/23 10/20/23 Range/Units 05:05 05:05 05:05 WBC 7.3 (4.0-10.5) x10^3/uL RBC 4.81 (4.1-5.4) x10^6/uL Hgb 11.2 L (12.0-16.0) g/dL Hct 35.5 (35-47) % MCV 73.8 L (78-100) fL MCH 23.3 L (26-32) pg MCHC 31.5 L (32-36) g/dL RDW 18.8 H (11.5-14.0) % Plt Count 98 L (150-450) x10^3/uL MPV 9.9 (7.5-11.0) fL Gran % 68.4 H (36.0-66.0) % Immature Gran % (Auto) 0.5 H (0.00-0.4) % Nucleat RBC Rel Count 0.0 (0.00-0.1) % Eos # (Auto) 0.06 (0-0.5) x10^3/uL Immature Gran # (Auto) 0.04 H (0.00-0.03) x10^3u/L Absolute Lymphs (auto) 1.53 (1.0-4.6) x10^3/uL Absolute Monos (auto) 0.68 (0.0-1.3) x10^3/uL Absolute Nucleated RBC 0.00 (0.00-0.01) x10^3u/L Lymphocytes % 20.9 L (24.0-44.0) % Monocytes % 9.3 (0.0-12.0) % Eosinophils % 0.8 (0.00-5.0) % Basophils % 0.1 (0.0-0.4) % Absolute Granulocytes 4.99 (1.4-6.9) x10^3/uL Basophils # 0.01 (0-0.4) x10^3/uL PT 12.4 (9.4-12.5) SECONDS INR 1.15 D (0.8-3.0) Sodium 129 L (137-145) mmol/L Potassium 3.1 L (3.5-5.1) mmol/L Chloride 106 (98-107) mmol/L Carbon Dioxide 19 L (22-30) mmol/L Anion Gap 7.3 (5-15) MEQ/L BUN 16 (7-17) mg/dL Creatinine 0.59 (0.52-1.04) mg/dL Estimated GFR 97.5 ML/MIN Glucose 97 (74-106) mg/dL Calcium 7.9 L (8.4-10.2) mg/dL Magnesium 1.7 (1.6-2.3) mg/dL Total Bilirubin 1.00 (0.2-1.3) mg/dL AST 20 (14-36) U/L ALT 9 (0-35) U/L Alkaline Phosphatase 90 (38-126) U/L Serum Total Protein 5.7 L (6.3-8.2) g/dL Albumin 2.5 L (3.5-5.0) g/dL 10/20/23 10/20/23 10/20/23 Range/Units 10:06 14:36 18:08 WBC (4.0-10.5) x10^3/uL RBC (4.1-5.4) x10^6/uL Hgb (12.0-16.0) g/dL Hct (35-47) % MCV (78-100) fL MCH (26-32) pg MCHC (32-36) g/dL RDW (11.5-14.0) % Plt Count (150-450) x10^3/uL MPV (7.5-11.0) fL Gran % (36.0-66.0) % Immature Gran % (Auto) (0.00-0.4) % Nucleat RBC Rel Count (0.00-0.1) % Eos # (Auto) (0-0.5) x10^3/uL Immature Gran # (Auto) (0.00-0.03) x10^3u/L Absolute Lymphs (auto) (1.0-4.6) x10^3/uL Absolute Monos (auto) (0.0-1.3) x10^3/uL Absolute Nucleated RBC (0.00-0.01) x10^3u/L Lymphocytes % (24.0-44.0) % Monocytes % (0.0-12.0) % Eosinophils % (0.00-5.0) % Basophils % (0.0-0.4) % Absolute Granulocytes (1.4-6.9) x10^3/uL Basophils # (0-0.4) x10^3/uL PT (9.4-12.5) SECONDS INR (0.8-3.0) Sodium 132 L 128 L 128 L (137-145) mmol/L Potassium 3.3 L 4.4 D 4.2 (3.5-5.1) mmol/L Chloride 107 105 103 (98-107) mmol/L Carbon Dioxide 18 L 20 L 21 L (22-30) mmol/L Anion Gap 9.7 6.8 7.3 (5-15) MEQ/L BUN 15 15 15 (7-17) mg/dL Creatinine 0.58 0.62 0.67 (0.52-1.04) mg/dL Estimated GFR 97.9 96.3 94.6 ML/MIN Glucose 127 H 135 H 120 H (74-106) mg/dL Calcium 8.0 L 8.4 8.6 (8.4-10.2) mg/dL Magnesium (1.6-2.3) mg/dL Total Bilirubin (0.2-1.3) mg/dL AST (14-36) U/L ALT (0-35) U/L Alkaline Phosphatase (38-126) U/L Serum Total Protein (6.3-8.2) g/dL Albumin (3.5-5.0) g/dL Radiology Exams: Radiology Procedures Category Date Time Status CHEST WITHOUT CONTRAST [CT] Stat Exams 10/18/23 23:07 Completed <FIONA CRUMP - Last Filed: 10/20/23 22:13> Assessment/Plan (1) COVID Current Visit: Yes Status: Acute Assessment & Plan: (1) COVID Current Visit: Yes Status: Acute Assessment & Plan: -CT chest IMPRESSION: Chronic obstructive pulmonary disease. Dilatation of the main pulmonary trunk and its branches, the possibility of pulmonary hypertension needs to be excluded. 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 Consider CTA if warranted clinically. -no hypoxia, on RA - no indication for remdesivir 10/20: -Required oxygen yesterday evening, now back on RA Code(s): U07.1 - COVID-19 (2) UTI (urinary tract infection) Current Visit: Yes Status: Acute Assessment & Plan: -Ceftriaxone for coverage of cellulitis/UTI, pending culture 10/20: -Culture with Ecoli, sensitive to ceftriaxone, will continue Code(s): N39.0 - URINARY TRACT INFECTION, SITE NOT SPECIFIED (3) Cellulitis of perineum Current Visit: Yes Status: Acute Assessment & Plan: -Cellulitis vs incontinence dermitis -Zosyn/vanc d/cd, patient has anaphylaxis allergy to pcn, will start ceftriaxone -wound care 10/20: -improving, continue wound care, off -loading, ceftriaxone Code(s): L03.315 - CELLULITIS OF PERINEUM (4) Generalized weakness Current Visit: Yes Status: Acute Assessment & Plan: -PT/OT eval Code(s): R53.1 - WEAKNESS (5) Hyponatremia Current Visit: Yes Status: Acute Assessment & Plan: -IVF at 100ml/hr -Monitor for fluid overload -BMP q4h -Tele Code(s): E87.1 - HYPO-OSMOLALITY AND HYPONATREMIA (6) Supratherapeutic INR Current Visit: Yes Status: Acute Assessment & Plan: -patient received vitamin K in ED, now in therapeutic range, pharmacy to dose coumadin Code(s): R79.1 - ABNORMAL COAGULATION PROFILE (7) Thrombocytopenia Current Visit: Yes Status: Acute Assessment & Plan: -?reactive/infection vs drug induced (lovenox) -continue to monitor and replace as appropriate Code(s): U07.1 - COVID-19 (2) UTI (urinary tract infection) Current Visit: Yes Status: Acute Code(s): N39.0 - URINARY TRACT INFECTION, SITE NOT SPECIFIED (3) Cellulitis of perineum Current Visit: Yes Status: Acute Code(s): L03.315 - CELLULITIS OF PERINEUM (4) Generalized weakness Current Visit: Yes Status: Acute Code(s): R53.1 - WEAKNESS (5) Hyponatremia Current Visit: Yes Status: Acute Code(s): E87.1 - HYPO-OSMOLALITY AND HYPONATREMIA (6) Supratherapeutic INR Current Visit: Yes Status: Acute Code(s): R79.1 - ABNORMAL COAGULATION PROFILE (7) Thrombocytopenia Current Visit: Yes Status: Acute <KARON DIEGO - Last Filed: 10/20/23 09:24> LAZARO Encounter - LAZARO Encounter Attestation LAZARO Encounter Attestation: "IhavepersonallyseenandMIKE Leon andhavediscussed pertinent aspects of their care with Karon Sigala agree with the history, physical exam (any modifications based on my personal exam will be noted below), assessment, and plan as outlined in original note. Please see immediately below for my summary of findings and additional assessment and plan along with any meaningful corrections/explanations to the Subjective/Objective portions of the LAZARO note will be noted." My portion of the encounter took place via telemedicine. <FIONA CRUMP - Last Filed: 10/20/23 22:13>
[2023-10-20 05:51] LABS: Absolute Neutrophil Ct (ANC) 4.99 x10^3/uL (1.4-6.9); BASOPHIL % 0.1 % (0.0-0.4); Basophil (Absolute #) 0.01 x10^3/uL (0-0.4); Eosinophil % 0.8 % (0.00-5.0); Eosinophil (Absolute #) 0.06 x10^3/uL (0-0.5); Hematocrit 35.5 % (35-47); Hemoglobin 11.2 g/dL (12.0-16.0); IMMATURE GRAN # 0.04 x10^3u/L (0.00-0.03); IMMATURE GRAN % 0.5 % (0.00-0.4); Lymphocyte (Absolute #) 1.53 x10^3/uL (1.0-4.6); Lymphocytes % 20.9 % (24.0-44.0); Mean Cell Volume 73.8 fL (78-100); Mean Corpuscular Hemoglobin 23.3 pg (26-32); Mean Corpuscular Hgb Concent. 31.5 g/dL (32-36); Mean Platelet Volume 9.9 fL (7.5-11.0); Monocyte (Absolute #) 0.68 x10^3/uL (0.0-1.3); Monocytes % 9.3 % (0.0-12.0); Neutrophil % 68.4 % (36.0-66.0); Platelet Count 98 x10^3/uL (150-450); Red Blood Count 4.81 x10^6/uL (4.1-5.4); Red Cell Distribution Width 18.8 % (11.5-14.0); White Blood Count 7.3 x10^3/uL (4.0-10.5)
[2023-10-20 05:54] LABS: ALBUMIN 2.5 g/dL (3.5-5.0); ANION GAP 7.3 MEQ/L (5-15); Calcium 7.9 mg/dL (8.4-10.2); Creatinine 1 0.59 mg/dL (0.52-1.04); EST GLOMERULAR FILTRATION RATE 97.5 ML/MIN; INR 1.15 (0.8-3.0); MAGNESIUM 1.7 mg/dL (1.6-2.3); PROTIME 12.4 SECONDS (9.4-12.5); Total Protein 5.7 g/dL (6.3-8.2)
[2023-10-20 05:56] LABS: Potassium 3.1 mmol/L (3.5-5.1)
[2023-10-20] MEDS ORDERED: Klor Con PO ONE ×2 (07:32→12:00)
[2023-10-20] MEDS: celeBREX 100 MG PO SCH (10:00)
[2023-10-20] MEDS: Zocor 10MG PO SCH (10:00)
[2023-10-20] MEDS: Sodium Chloride 0.9% 1000 ML 1,000 ML IV SCH (10:00)
[2023-10-20] MEDS: ROCEPHIN 1 Gm-D5w 50 ml Bag** 1 G/50 ML IVPB IV SCH (10:00)
[2023-10-20] MEDS ORDERED: VITAMIN D2 PO SCH (10:00)
[2023-10-20] MEDS: Protonix 20MG Tablet PO SCH (10:02)
[2023-10-20] MEDS: SODIUM BICARBONATE PO SCH ×2 (10:02→20:05)
[2023-10-20] MEDS: Lopressor 25MG Tab PO SCH (10:02)
[2023-10-20 10:27] LABS: ANION GAP 9.7 MEQ/L (5-15); Creatinine 1 0.58 mg/dL (0.52-1.04); EST GLOMERULAR FILTRATION RATE 97.9 ML/MIN; Potassium 3.3 mmol/L (3.5-5.1)
[2023-10-20] MEDS ORDERED: Coumadin 3 MG PO ONE (11:00)
[2023-10-20 14:50] LABS: ANION GAP 6.8 MEQ/L (5-15); Calcium 8.4 mg/dL (8.4-10.2); Creatinine 1 0.62 mg/dL (0.52-1.04); EST GLOMERULAR FILTRATION RATE 96.3 ML/MIN
[2023-10-20 14:51] LABS: Potassium 4.4 mmol/L (3.5-5.1)
[2023-10-20] MEDS: Coumadin 3 MG PO SCH (17:09)
[2023-10-20 18:27] LABS: ANION GAP 7.3 MEQ/L (5-15); Calcium 8.6 mg/dL (8.4-10.2); Creatinine 1 0.67 mg/dL (0.52-1.04); EST GLOMERULAR FILTRATION RATE 94.6 ML/MIN; Potassium 4.2 mmol/L (3.5-5.1)
--- NOTE | 2023-10-21 05:12 | PCM.DS ---
Discharge Summary Date of Admission: 10/19/23 00:17 Date of Discharge: 10/21/23 Admitting Physician: RISSA SCOTT MD Primary Care Provider: TUAN HELTON <KARON DIEGO - Last Filed: 10/21/23 12:41> Date of Admission: 10/19/23 00:17 Admitting Physician: RISSA SCOTT MD Primary Care Provider: TUAN HELTON <FIONA CRUMP - Last Filed: 10/21/23 20:46> Allergies <KARON DIEGO - Last Filed: 10/21/23 12:41> <FIONA CRUMP - Last Filed: 10/21/23 20:46> Allergies Penicillins Allergy (Unknown, Verified 10/18/23 22:49) Hospital Summary - Hospital Course Hospital Course: Ms. 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 She admits to one week of pain, and upon arrival to [facility], exam revealed infection of the perineal area in the setting of laboratory data that revealed elevated INR, thrombocytopenia, hyponatremia, and elevated lactate. Imaging was unremarkable. Patient admitted for perineal cellulitis, UTI with ecoli, hyponatremia, supratherapeutic INR. Patient treated with ceftriaxone as IP, perineal area and buttocks improving. Patient is at baseline. She has been set up with [facility], she has declined SNF p lacement. Will send her home with overnight sleep study. She does not qualify for home oxygen. Will send home on cefdinir. Advised follow up with PCP to ensure resolution of UTI/ cellulitis. INR was supratherapeutic, [facility] to check INR on regular basis. Will send home on coumadin 3mg. Will need rechecked tomorrow. Discharge Note New Diagnosis: UTI/perineal cellulitis New Medications: cefdinir Follow Up: PCP Latest Assessment & Plan (1) COVID Current Visit: Yes Status: Acute Assessment & Plan: -CT chest IMPRESSION: Chronic obstructive pulmonary disease. Dilatation of the main pulmonary trunk and its branches, the possibility of pulmonary hypertension needs to be excluded. 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 Consider CTA if warranted clinically. -no hypoxia, on RA - no indication for remdesivir 10/20: -Required oxygen yesterday evening, now back on RA Code(s): U07.1 - COVID-19 (2) UTI (urinary tract infection) Current Visit: Yes Status: Acute Assessment & Plan: -Ceftriaxone for coverage of cellulitis/UTI, pending culture 10/20: -Culture with Ecoli, sensitive to ceftriaxone, will continue Code(s): N39.0 - URINARY TRACT INFECTION, SITE NOT SPECIFIED (3) Cellulitis of perineum Current Visit: Yes Status: Acute Assessment & Plan: -Cellulitis vs incontinence dermitis -Zosyn/vanc d/cd, patient has anaphylaxis allergy to pcn, will start ceftriaxone -wound care 10/20: -improving, continue wound care, off -loading, ceftriaxone Code(s): L03.315 - CELLULITIS OF PERINEUM (4) Generalized weakness Current Visit: Yes Status: Acute Assessment & Plan: -PT/OT eval Code(s): R53.1 - WEAKNESS (5) Hyponatremia Current Visit: Yes Status: Acute Assessment & Plan: -IVF at 100ml/hr -Monitor for fluid overload -BMP q4h -Tele Code(s): E87.1 - HYPO-OSMOLALITY AND HYPONATREMIA (6) Supratherapeutic INR Current Visit: Yes Status: Acute Assessment & Plan: -patient received vitamin K in ED, now in therapeutic range, pharmacy to dose coumadin Code(s): R79.1 - ABNORMAL COAGULATION PROFILE (7) Thrombocytopenia Current Visit: Yes Status: Acute Assessment & Plan: -?reactive/infection vs drug induced (lovenox) -continue to monitor and replace as appropriate I spent 35 minutes [id number] with the patient on the day of discharge performing discharge exam, discussing hospital stay and discharge instructions with patient and caregivers, preparation of discharge records, prescriptions & referral forms and addressing any questions/concerns the patient had as documented above. - Vitals & Intake/Output Vital Signs: Vital Signs Temperature 97.0 F 10/21/23 04:00 Pulse Rate 69 10/21/23 04:00 Respiratory Rate 24 10/21/23 04:00 Blood Pressure 138/67 10/21/23 04:00 O2 Sat by Pulse Oximetry 96 10/21/23 04:00 Intake & Output: Intake & Output 10/18/23 10/19/23 10/20/23 10/21/23 11:59 11:59 11:59 11:59 Intake Total 280 240 540 Output Total 200 850 575 Balance 80 -610 -35 Weight 55.4 kg - Lab Result Diagrams: 10/21/23 06:30 10/21/23 06:30 Lab Results-Last 24 Hrs: Lab Results-Last 24 Hours 10/20/23 10/20/23 10/20/23 Range/Units 05:05 05:05 05:05 WBC 7.3 (4.0-10.5) x10^3/uL RBC 4.81 (4.1-5.4) x10^6/uL Hgb 11.2 L (12.0-16.0) g/dL Hct 35.5 (35-47) % MCV 73.8 L (78-100) fL MCH 23.3 L (26-32) pg MCHC 31.5 L (32-36) g/dL RDW 18.8 H (11.5-14.0) % Plt Count 98 L (150-450) x10^3/uL MPV 9.9 (7.5-11.0) fL Gran % 68.4 H (36.0-66.0) % Immature Gran % (Auto) 0.5 H (0.00-0.4) % Nucleat RBC Rel Count 0.0 (0.00-0.1) % Eos # (Auto) 0.06 (0-0.5) x10^3/uL Immature Gran # (Auto) 0.04 H (0.00-0.03) x10^3u/L Absolute Lymphs (auto) 1.53 (1.0-4.6) x10^3/uL Absolute Monos (auto) 0.68 (0.0-1.3) x10^3/uL Absolute Nucleated RBC 0.00 (0.00-0.01) x10^3u/L Lymphocytes % 20.9 L (24.0-44.0) % Monocytes % 9.3 (0.0-12.0) % Eosinophils % 0.8 (0.00-5.0) % Basophils % 0.1 (0.0-0.4) % Absolute Granulocytes 4.99 (1.4-6.9) x10^3/uL Basophils # 0.01 (0-0.4) x10^3/uL PT 12.4 (9.4-12.5) SECONDS INR 1.15 D (0.8-3.0) Sodium 129 L (137-145) mmol/L Potassium 3.1 L (3.5-5.1) mmol/L Chloride 106 (98-107) mmol/L Carbon Dioxide 19 L (22-30) mmol/L Anion Gap 7.3 (5-15) MEQ/L BUN 16 (7-17) mg/dL Creatinine 0.59 (0.52-1.04) mg/dL Estimated GFR 97.5 ML/MIN Glucose 97 (74-106) mg/dL Calcium 7.9 L (8.4-10.2) mg/dL Magnesium 1.7 (1.6-2.3) mg/dL Total Bilirubin 1.00 (0.2-1.3) mg/dL AST 20 (14-36) U/L ALT 9 (0-35) U/L Alkaline Phosphatase 90 (38-126) U/L Serum Total Protein 5.7 L (6.3-8.2) g/dL Albumin 2.5 L (3.5-5.0) g/dL 10/20/23 10/20/23 10/20/23 Range/Units 10:06 14:36 18:08 WBC (4.0-10.5) x10^3/uL RBC (4.1-5.4) x10^6/uL Hgb (12.0-16.0) g/dL Hct (35-47) % MCV (78-100) fL MCH (26-32) pg MCHC (32-36) g/dL RDW (11.5-14.0) % Plt Count (150-450) x10^3/uL MPV (7.5-11.0) fL Gran % (36.0-66.0) % Immature Gran % (Auto) (0.00-0.4) % Nucleat RBC Rel Count (0.00-0.1) % Eos # (Auto) (0-0.5) x10^3/uL Immature Gran # (Auto) (0.00-0.03) x10^3u/L Absolute Lymphs (auto) (1.0-4.6) x10^3/uL Absolute Monos (auto) (0.0-1.3) x10^3/uL Absolute Nucleated RBC (0.00-0.01) x10^3u/L Lymphocytes % (24.0-44.0) % Monocytes % (0.0-12.0) % Eosinophils % (0.00-5.0) % Basophils % (0.0-0.4) % Absolute Granulocytes (1.4-6.9) x10^3/uL Basophils # (0-0.4) x10^3/uL PT (9.4-12.5) SECONDS INR (0.8-3.0) Sodium 132 L 128 L 128 L (137-145) mmol/L Potassium 3.3 L 4.4 D 4.2 (3.5-5.1) mmol/L Chloride 107 105 103 (98-107) mmol/L Carbon Dioxide 18 L 20 L 21 L (22-30) mmol/L Anion Gap 9.7 6.8 7.3 (5-15) MEQ/L BUN 15 15 15 (7-17) mg/dL Creatinine 0.58 0.62 0.67 (0.52-1.04) mg/dL Estimated GFR 97.9 96.3 94.6 ML/MIN Glucose 127 H 135 H 120 H (74-106) mg/dL Calcium 8.0 L 8.4 8.6 (8.4-10.2) mg/dL Magnesium (1.6-2.3) mg/dL Total Bilirubin (0.2-1.3) mg/dL AST (14-36) U/L ALT (0-35) U/L Alkaline Phosphatase (38-126) U/L Serum Total Protein (6.3-8.2) g/dL Albumin (3.5-5.0) g/dL Micro Results-Entire Visit: Microbiology 10/18/23 23:01 Urine Culture - Final Clean Catch Midstream Escherichia Coli 10/18/23 19:59 Blood Culture - Preliminary Blood - Procedures and Test Procedures and Tests throughout Hospitalization: Therapy Orders & Screens 10/19/23 00:26 Respiratory Therapy Consult ONCE Comment: Reason For Exam: 10/19/23 01:33 Respiratory Therapy Assessment DAILY Comment: 10/19/23 10:56 PT Eval & Treat ( Order) ONCE Reason for Eval:: WEAKNESS Diagnosis: Covid-19 10/20/23 08:11 Oxygen Nasal Cannula 2 lpm Comment: Diagnosis: Covid-19 <KARON DIEGO - Last Filed: 10/21/23 12:41> - Vitals & Intake/Output Vital Signs: Vital Signs Temperature 97.0 F 10/21/23 12:00 Pulse Rate 66 10/21/23 12:00 Respiratory Rate 17 10/21/23 16:00 Blood Pressure 128/82 10/21/23 12:00 O2 Sat by Pulse Oximetry 94 L 10/21/23 12:00 Intake & Output: Intake & Output 10/19/23 10/20/23 10/21/23 10/22/23 11:59 11:59 11:59 11:59 Intake Total 280 240 600 60 Output Total 200 850 875 Balance 80 610 -346 60 Weight 55.4 kg - Lab Result Diagrams: 10/21/23 06:30 10/21/23 06:30 Lab Results-Last 24 Hrs: Lab Results-Last 24 Hours 10/21/23 10/21/23 10/21/23 Range/Units 05:51 06:30 06:30 WBC 7.2 (4.0-10.5) x10^3/uL RBC 4.62 (4.1-5.4) x10^6/uL Hgb 10.7 L (12.0-16.0) g/dL Hct 34.5 L (35-47) % MCV 74.7 L (78-100) fL MCH 23.2 L (26-32) pg MCHC 31.0 L (32-36) g/dL RDW 19.2 H (11.5-14.0) % Plt Count 91 L (150-450) x10^3/uL Gran % 64.1 (36.0-66.0) % Immature Gran % (Auto) 0.7 H (0.00-0.4) % Nucleat RBC Rel Count 0.0 (0.00-0.1) % Eos # (Auto) 0.06 (0-0.5) x10^3/uL Immature Gran # (Auto) 0.05 H (0.00-0.03) x10^3u/L Absolute Lymphs (auto) 1.83 (1.0-4.6) x10^3/uL Absolute Monos (auto) 0.61 (0.0-1.3) x10^3/uL Absolute Nucleated RBC 0.00 (0.00-0.01) x10^3u/L Lymphocytes % 25.6 (24.0-44.0) % Monocytes % 8.5 (0.0-12.0) % Eosinophils % 0.8 (0.00-5.0) % Basophils % 0.3 (0.0-0.4) % Absolute Granulocytes 4.59 (1.4-6.9) x10^3/uL Basophils # 0.02 (0-0.4) x10^3/uL PT 12.8 H (9.4-12.5) SECONDS INR 1.19 (0.8-3.0) Sodium 132 L (137-145) mmol/L Potassium 4.0 (3.5-5.1) mmol/L Chloride 106 (98-107) mmol/L Carbon Dioxide 22 (22-30) mmol/L Anion Gap 7.8 (5-15) MEQ/L BUN 12 (7-17) mg/dL Creatinine 0.61 (0.52-1.04) mg/dL Estimated GFR 96.7 ML/MIN Glucose 91 (74-106) mg/dL Calcium 8.5 (8.4-10.2) mg/dL Total Bilirubin 0.90 (0.2-1.3) mg/dL AST 23 (14-36) U/L ALT 10 (0-35) U/L Alkaline Phosphatase 95 (38-126) U/L Serum Total Protein 6.0 L (6.3-8.2) g/dL Albumin 2.6 L (3.5-5.0) g/dL Slides for Path Review YES Micro Results-Entire Visit: Microbiology 10/18/23 23:01 Urine Culture - Final Clean Catch Midstream Escherichia Coli 10/18/23 19:59 Blood Culture - Preliminary Blood - Procedures and Test Procedures and Tests throughout Hospitalization: Therapy Orders & Screens 10/19/23 00:26 Respiratory Therapy Consult ONCE Comment: Reason For Exam: 10/19/23 01:33 Respiratory Therapy Assessment DAILY Comment: 10/19/23 10:56 PT Eval & Treat ( Order) ONCE Reason for Eval:: WEAKNESS Diagnosis: Covid-19 10/20/23 08:11 Oxygen Nasal Cannula 2 lpm Comment: Diagnosis: Covid-19 <FIONA CRUMP - Last Filed: 10/21/23 20:46> Discharge Exam General Appearance: no apparent distress Neurologic Exam: alert, oriented x 3, cooperative, motor deficits (residual weakness right sided) Eye Exam: PERRL Ears, Nose, Throat Exam: normal ENT inspection Neck Exam: normal inspection Respiratory Exam: normal breath sounds, lungs clear Cardiovascular Exam: regular rate/rhythm, normal heart sounds Gastrointestinal/Abdomen Exam: soft, normal bowel sounds Pelvic Exam: other (excoriation to bilateral buttocks/perineal regions) Rectal Exam: deferred Back Exam: normal inspection Extremity Exam: limited range of motion Skin Exam: other (see pelvic exam) <KARON DIEGO - Last Filed: 10/21/23 12:41> Final Diagnosis/Problem List - Final Discharge Diagnosis/Problem (1) COVID Status: Acute Code(s): U07.1 - COVID-19 (2) UTI (urinary tract infection) Status: Acute Code(s): N39.0 - URINARY TRACT INFECTION, SITE NOT SPECIFIED (3) Cellulitis of perineum Status: Acute Code(s): L03.315 - CELLULITIS OF PERINEUM (4) Generalized weakness Status: Acute Code(s): R53.1 - WEAKNESS (5) Hyponatremia Status: Acute Code(s): E87.1 - HYPO-OSMOLALITY AND HYPONATREMIA (6) Supratherapeutic INR Status: Acute Code(s): R79.1 - ABNORMAL COAGULATION PROFILE (7) Thrombocytopenia Status: Acute <KARON DIEGO - Last Filed: 10/21/23 12:41> <KARON DIEGO - Last Filed: 10/21/23 12:41> <FIONA CRUMP - Last Filed: 10/21/23 20:46> - Discharge Disposition: HOME HEALTH SERVICE Condition: Stable Prescriptions: New Cefdinir 300 mg PO BID 7 Days #14 cap Continue Metoprolol Tartrate 25 mg [Lopressor 25MG Tab] 25 mg PO DAILY Pantoprazole Sodium [[id number]] 20 mg PO DAILY Celecoxib 100 mg [celeBREX 100 MG] 100 mg PO DAILY Warfarin Sodium 3 mg PO DAILY 90 Days #90 tablet Potassium Chloride [Klor-Con 10] 10 meq PO DAILY Lovastatin 10 mg PO DAILY Ergocalciferol (Vitamin D2) [Vitamin D] 50,000 unit PO WEEKLY Outpatient Orders: Overnight Pulse Ox Facility: [facility], Location: RESPIRATORY THERAPY Instructions: Pneumonia, Adult (DC) Additional Instructions: [employer] [facility] HAS BEEN SET UP. THEY WILL CONTACT YOU TO ARRANGE A TIME TO COME SEE YOU. THEIR PHONE # IS [phone]. Follow up with: TUAN HELTON MD [Primary Care Provider] - 10/29/23 2:00 pm LAZARO Encounter - LAZARO Encounter Attestation LAZARO Encounter Attestation: "IhavepersonallysMIKE De Paz andmauroiscussed pertinent aspects of their care with Karon Sigala agree with the history, physical exam (any modifications based on my personal exam will be noted below), assessment, and plan as outlined in original note. Please see immediately below for my summary of findings and additional assessment and plan along with any meaningful corrections/explanations to the Subjective/Objective portions of the LAZARO note will be noted." My portion of the encounter took place via telemedicine. <FIONA CRUMP - Last Filed: 10/21/23 20:46>
[2023-10-21 06:10] LABS: INR 1.19 (0.8-3.0); PROTIME 12.8 SECONDS (9.4-12.5)
[2023-10-21] MEDS ORDERED: PHARMACY DOSING REQUEST MC ONE (09:10)
[2023-10-21 09:29] LABS: Absolute Neutrophil Ct (ANC) 4.59 x10^3/uL (1.4-6.9); BASOPHIL % 0.3 % (0.0-0.4); Basophil (Absolute #) 0.02 x10^3/uL (0-0.4); Eosinophil % 0.8 % (0.00-5.0); Eosinophil (Absolute #) 0.06 x10^3/uL (0-0.5); Hematocrit 34.5 % (35-47); Hemoglobin 10.7 g/dL (12.0-16.0); IMMATURE GRAN # 0.05 x10^3u/L (0.00-0.03); IMMATURE GRAN % 0.7 % (0.00-0.4); Lymphocyte (Absolute #) 1.83 x10^3/uL (1.0-4.6); Lymphocytes % 25.6 % (24.0-44.0); Mean Cell Volume 74.7 fL (78-100); Mean Corpuscular Hemoglobin 23.2 pg (26-32); Monocyte (Absolute #) 0.61 x10^3/uL (0.0-1.3); Monocytes % 8.5 % (0.0-12.0); Neutrophil % 64.1 % (36.0-66.0); Platelet Count 91 x10^3/uL (150-450); Red Blood Count 4.62 x10^6/uL (4.1-5.4); Red Cell Distribution Width 19.2 % (11.5-14.0); White Blood Count 7.2 x10^3/uL (4.0-10.5)
[2023-10-21 09:40] LABS: ALBUMIN 2.6 g/dL (3.5-5.0); ANION GAP 7.8 MEQ/L (5-15); BILIRUBIN,TOTAL 0.9 mg/dL (0.2-1.3); Calcium 8.5 mg/dL (8.4-10.2); Creatinine 1 0.61 mg/dL (0.52-1.04); EST GLOMERULAR FILTRATION RATE 96.7 ML/MIN
[2023-10-21] MEDS: ROCEPHIN 1 Gm-D5w 50 ml Bag** 1 G/50 ML IVPB IV SCH (09:53)
[2023-10-21] MEDS: Protonix 20MG Tablet PO SCH (09:53)
[2023-10-21] MEDS: Zocor 10MG PO SCH (09:53)
[2023-10-21] MEDS: SODIUM BICARBONATE PO SCH (09:53)
[2023-10-21] MEDS: celeBREX 100 MG PO SCH (09:53)
[2023-10-21] MEDS: Lopressor 25MG Tab PO SCH (09:53)
[2023-10-21 12:40] LABS: Slide Review 1 YES
[2023-10-21 13:07] VITALS: BP 128/82; PULSE 66; RESP 17; TEMP 97; O2SAT 94
[2023-10-21] MEDS ORDERED: TROUGH DRUG LEVELS IJ ONE (17:30)
== END 2023-10-21 16:35 | disposition home health service (06) ==
LOC: ED 19:12 → MED SURG 10-19 00:17
PROVIDERS: ADMIT Internal Medicine Critical Care Medicine; ATTEND Internal Medicine Critical Care Medicine
DX: U07.1 COVID-19 (principal); N39.0 Urinary tract infection, site not specified; B96.20 Unspecified Escherichia coli [E. coli] as the cause of diseases classified elsewhere; L03.315 Cellulitis of perineum; R53.1 Weakness; E87.1 Hypo-osmolality and hyponatremia; R79.1 Abnormal coagulation profile; D69.6 Thrombocytopenia, unspecified; I10 Essential (primary) hypertension; J44.9 Chronic obstructive pulmonary disease, unspecified; E78.5 Hyperlipidemia, unspecified; F17.200 Nicotine dependence, unspecified, uncomplicated; Z79.01 Long term (current) use of anticoagulants; Z79.899 Other long term (current) drug therapy; Z20.828 Contact with and (suspected) exposure to other viral communicable diseases; Z86.73 Personal history of transient ischemic attack (TIA), and cerebral infarction without residual deficits
CPT/HCPCS: 0241U; 36000; 36415; 51702; 71045; 71250; 80048; 80053; 81001; 83605; 83735; 83880; 84134; 84145; 84295; 84484; 85025; 85027; 85610; 87040; 87077; 87086; 87186; 93268; 94762; 96365; 96367; 97161; 99285; G0378; Q3014; J0696; J2270; J2405; J3430; A9270-GY; J3370